=== PATIENT | female | born 1960 | race Caucasian/White ===

== ENCOUNTER 2023-06-02 11:25 | Inpatient (IN) ==
--- NOTE | 2023-06-02 11:58 | Emergency Department Note ---
Impression & Plan Acute cholecystitis, Chest pain, Acute pancreatitis ED Provider Note NAME: CHILO PAIGE AGE: 63 SEX: F : 1960 ARRIVES VIA: Walk-In INFORMANT: Patient, ED PROVIDER(S): Edd Wells DO CHIEF COMPLAINT: Chest pain HPI: The patient is a 63-year-old female who presented to the emergency department for an evaluation of chest pain. The patient describes epigastric pain that radiates into her upper chest. She states that she had a similar episode a few days ago but it resolved spontaneously. She returns emergency room today because of ongoing and worsening pain. The pain started again this morning. Is not worse with food or exertion. She has no pain in her back. Patient does report nausea but no vomiting at this time. ROS: See above HPI for pertinent positives & negatives. A total of 10 systems reviewed and were otherwise negative. PAST MEDICAL HISTORY: See Below PAST SURGICAL HISTORY: See Below FAMILY HISTORY: See Below SOCIAL HISTORY: See Below HOME MEDICATIONS: See Below ALLERGIES: See Below VITALS: See Below PHYSICAL EXAMINATION: GENERAL: The patient is awake and alert. She appears anxious and uncomfortable. EYES: The conjunctivae are clear. The pupils are round and reactive. EARS, NOSE, MOUTH AND THROAT: The nose is without any evidence of any deformity. NECK: The neck is nontender and supple. RESPIRATORY: Normal respiratory effort is noted there is no evidence of wheezing rhonchi or rales CARDIOVASCULAR: Regular rate and rhythm noted there no murmurs rubs or gallops normal S1 normal S2. GASTROINTESTINAL: Abdomen was mildly distended. There is epigastric tenderness to palpation which was moderate. There was no guarding or rigidity MUSCULOSKELETAL/EXTREMITIES: There is no evidence of gross deformity full range of motion is noted in the hips and shoulders. SKIN: There is no obvious evidence of any rash. There are no petechiae, pallor or cyanosis noted. NEUROLOGIC: Patient is awake alert and oriented x3. MEDICAL DECISION MAKING: The patient is a 63-year-old female who presented to the emergency department for an evaluation of chest pain. The patient describes anterior chest pain which began in the epigastric region. The patient's history and physical exam appear to be consistent with an intra-abdominal process. The patient was found to have an elevation in her LFTs as well as her lipase. For this reason CT of the abdomen and pelvis was obtained. This appears to be consistent with cholecystitis. The patient was treated with pain medication in the emergency department. She was also treated with IV antibiotics. I discussed the patient's laboratory and radiographic studies with her. I discussed her condition with the on-call [facility]. They have agreed to evaluate the patient in the emergency department for further management and disposition. Triage Nursing notes reviewed. Prior medical records reviewed Vital Signs: reviewed and remarkable for elevated blood pressure. Differential diagnosis: Cardiac ischemia, aortic dissection, pulmonary embolism, pneumothorax, pneumonia, pericarditis, myocarditis, esophageal rupture, GERD, cholecystitis, pancreatitis, musculoskeletal, as well as other pathologies. ER treatment provided: See below Diagnostics interpreted by me: ECG: EKG was obtained in the emergency department. My interpretation is normal sinus rhythm at 65 bpm. There is no ectopy. Nonspecific ST and T wave abnormalities were noted in the anterior leads. No previous tracing available. Cardiac Monitoring: An order was placed for continuous cardiac monitoring. The monitor shows a rate of 75 bpm with sinus rhythm Laboratory studies: As stated above and show below. Imaging studies: See below. Radiographic imaging was reviewed by myself Consultation(s): I discussed this case with Ronnell was on-call for the [facility] Past Med/Surg History Medical History Encounter for pre-operative examination Degenerative disc disease lumbar region Arthritis Stress incontinence GERD (gastroesophageal reflux disease) Prediabetes Hypertension Surgical History History of left cataract extraction Nausea and vomiting after administration of anesthetic agent History of section x 1 >incision infected and required debridement History of dilatation and curettage H/O ovarian cystectomy rt side History of esophagogastroduodenoscopy (EGD) History of tooth extraction Family History Other No family history of adverse response to anesthesia Social History Smoking Status: Never smoker Second Hand Exposure: Yes (as a child); Do You Dip or Chew Tobacco: No; Hx Alcohol Use: Yes Hx Substance Use: No Preferred Language: Latvian Communication Ability: Effective Chicken Dresser Required: No Beliefs That Will Affect Care: None Current Living Situation: Spouse and Family Current Living Situation Comment: and son Feels Safe at Home: Yes Assistive Devices: Glasses Allergies Allergies Allergy/AdvReac Type Severity Reaction Status Date / Time Penicillins Allergy Intermediate Hives Verified 04/19/23 08:51 Home Meds Home Medications Medication Instructions Recorded Confirmed albuterol sulfate 90 mcg/actuation 1 inh inhalation QID PRN sob 03/27/23 04/19/23 aerosol inhaler lisinopril 20 2 tab PO QAM 03/27/23 04/19/23 mg-hydrochlorothiazide 12.5 mg tablet omega-3 fatty acids 1,000 mg PO QAM 03/27/23 04/19/23 omeprazole 20 mg tablet,delayed 20 mg PO QPM 03/27/23 04/19/23 release Results & Data (ED) Vital Signs Vital Signs - 24 hr 06/02/23 11:29 06/02/23 15:00 06/02/23 15:04 Temperature 36.7 C Temperature Source Skin Pulse Rate 64 63 Pulse Rate from SpO2 Sensor 62 Respiratory Rate 18 18 Blood Pressure 164/77 H Blood Pressure [Left Arm] 132/75 Blood Pressure Mean 106 Blood Pressure Mean [Left Arm] 94 Pulse Oximetry 100 97 Oxygen Delivery Method Room Air Sepsis Recent Fever Within 48 Hours No Sepsis New/Unexplained Change in Mental Status No Sepsis Action Taken by Nursing No Action Required 06/02/23 15:12 06/02/23 15:30 06/02/23 15:31 Temperature Temperature Source Pulse Rate 65 72 75 Pulse Rate from SpO2 Sensor 71 78 Respiratory Rate 19 14 Blood Pressure Blood Pressure [Left Arm] Blood Pressure Mean Blood Pressure Mean [Left Arm] Pulse Oximetry 99 98 Oxygen Delivery Method Sepsis Recent Fever Within 48 Hours Sepsis New/Unexplained Change in Mental Status Sepsis Action Taken by Nursing 06/02/23 15:31 06/02/23 15:40 Temperature Temperature Source Pulse Rate Pulse Rate from SpO2 Sensor Respiratory Rate Blood Pressure 151/95 H Blood Pressure [Left Arm] Blood Pressure Mean 124 Blood Pressure Mean [Left Arm] Pulse Oximetry 98 Oxygen Delivery Method Room Air Sepsis Recent Fever Within 48 Hours Sepsis New/Unexplained Change in Mental Status Sepsis Action Taken by [facility] Medications Current Medication List: was personally reviewed by me Laboratory Data Attestation: I reviewed the patient's lab results. 06/02/23 12:16 06/02/23 14:44 Lab Results 06/02/23 06/02/23 Range/Units 12:16 14:44 WBC 8.66 (4.8-10.8) K/ul RBC 4.94 (4.20-5.40) M/uL Hgb 14.3 (12.0-16.0) g/dl Hct 42.0 (37.0-47.0) % MCV 85.0 (80.0-100.0) fL MCH 28.9 (25.0-34.0) pg MCHC 34.0 (32.0-36.0) g/dL RDW Std Deviation 39.6 (36.4-46.3) fL RDW Coeff of Lisandro 12.8 (11.5-14.5) % Plt Count 208 (130-400) K/uL MPV 11.2 (9.4-12.4) fL Immature Gran % (Auto) 0.2 % Neut % (Auto) 80.4 % Lymph % (Auto) 12.8 % Edmunds % (Auto) 5.1 % Eos % (Auto) 0.9 % Baso % (Auto) 0.6 % Neut # (Auto) 6.96 H (1.40-6.50) K/uL Lymph # (Auto) 1.11 L (1.20-3.40) K/uL Edmunds # (Auto) 0.44 (0.11-0.59) K/uL Eos # (Auto) 0.08 (0.00-0.50) K/uL Baso # (Auto) 0.05 (0.00-0.20) K/uL Immature Gran # (Auto) 0.02 (0.01-0.20) K/uL PT Cancelled 10.9 INR Cancelled 1.0 APTT Cancelled 26 PTT Ratio Cancelled 0.9 Sodium 142 (136-145) mmol/L Potassium TNP 3.9 Chloride 104 (98-107) mmol/L Carbon Dioxide 30 (21-32) mmol/L Anion Gap 8 (3-11) BUN 16 (6-23) mg/dl Creatinine 0.56 L (0.6-1.2) mg/dl Est Cr Clr Drug Dosing Not Reportable Est GFR ( Amer) 116.6 ml/min Est GFR (Non-Af Amer) 100.6 ml/min BUN/Creatinine Ratio 28.6 H (10-20) Glucose 145 H (70-99(Fasting)) mg/dl Calcium 9.8 (8.6-10.3) mg/dl Total Bilirubin 1.6 H (0.2-1.0) mg/dl AST TNP 166 H ALT 67 H (7-52) U/L Alkaline Phosphatase 101 (34-104) U/L Troponin I High Sens 2.5 (0-14) pg/ml Total Protein 7.3 (6.0-8.3) gm/dl Albumin 4.4 (3.4-5.0) gm/dl Globulin 2.9 (2.5-4.0) gm/dl Albumin/Globulin Ratio 1.5 (0.9-2) Lipase 692 H (11-82) U/L Administered Medications Cefoxitin Sodium (Mefoxin) 2,000 mg in 60 mls @ 100 mls/hr IV NOW STA Stop: 06/02/23 16:01 Last Admin: 06/02/23 15:34 Dose: 100 mls/hr Documented By: NH Discontinued Medications Al Hydrox/Mg Hydrox/Simethicone (Aluminum/Magnesium Susp 30 Ml Udc) 30 ml PO NOW STA Stop: 06/02/23 11:41 Last Admin: 06/02/23 12:17 Dose: 30 ml Documented By: CALEB Sodium Chloride (Nss) 500 mls @ 999 mls/hr IV .Q31M STA Stop: 06/02/23 12:10 Last Infusion: 06/02/23 14:28 Dose: Infused Documented By: Admin: 06/02/23 12:12 Dose: 999 mls/hr Documented By: CALEB Ioversol (Optiray 320 500ml) 90 ml IV ONCE ONE Stop: 06/02/23 14:30 Last Admin: 06/02/23 14:30 Dose: 90 ml Documented By: VERENA Morphine Sulfate (Morphine Sulfate 4 Mg/Ml 1 Ml Carp\Vial) 4 mg IV NOW STA Stop: 06/02/23 11:41 Last Admin: 06/02/23 12:14 Dose: 4 mg Documented By: CALEB Ondansetron HCl (Ondansetron Inj 2 Mg/Ml 2 Ml Vial) 4 mg IV NOW STA Stop: 06/02/23 11:41 Last Admin: 06/02/23 12:13 Dose: 4 mg Documented By: TAMEKAW Imaging Data Attestation: I personally reviewed and interpreted this imaging study as follows: My Impression: 1 view chest x-ray was obtained in the emergency department. My interpretation is no free air or definite infiltrate, final report below. KUB was obtained in the emergency department. My interpretation is no free air or signs of bowel obstruction, final report below Radiologist's Impression: Chest X-Ray 06/02/23 11:40 SINGLE VIEW CHEST CLINICAL HISTORY: Atypical chest pain FINDINGS: An AP, portable, upright chest radiograph is obtained. No prior studies are available for comparison at the time of dictation. The cardiomediastinal silhouette is unremarkable. There is mild elevation of the right hemidiaphragm and dependent atelectasis. The lungs and pleural spaces are otherwise clear. No pneumothorax is seen. The bony thorax is grossly intact. IMPRESSION: No active disease in the chest. ACT 112: Negative or not required by law. Electronically signed by: Jovany Melo M.D. 06/02/2023 12:53 PM KUB X-Ray 06/02/23 11:40 KUB CLINICAL HISTORY: Epigastric pain. COMPARISON STUDY: None. FINDINGS: Pelvic calcifications likely reflect phleboliths. The bowel gas pattern is normal. Amount of stool is within normal limits. Exam is mildly compromised given suboptimal penetration. No definite renal calculi. IMPRESSION: No evidence for a bowel obstruction. ACT 112: Negative or not required by law. Electronically signed by: Edison Bay M.D. 06/02/2023 1:02 PM Abdomen/Pelvis CT 06/02/23 13:[address] WITH IV CONTRAST CT DOSE: 1422.96 mGy.cm HISTORY: Acute upper abdominal pain upper abd pain TECHNIQUE: Multiaxial CT images of the abdomen and pelvis were performed following the IV administration of 90 cc of Optiray, A dose lowering technique was utilized adhering to the principles of ALARA. COMPARISON STUDY: Chest radiograph of same day FINDINGS: Trace pleural effusions. Lung bases are generally clear. No free air. Mild hepatomegaly, 14.9 cm. Unremarkable pancreas and adrenal glands. Circumferential gallbladder wall thickening with mild pericholecystic stranding. Dilation of the common bile duct measures up to 1.2 cm. No obstructing biliary stone or lesion identified. Normal caliber of the pancreatic duct. Hepatic steatosis. There are a few scattered cysts within the liver measuring up to 9 mm. Patent hepatic and portal veins. Parenchymal and renal sinus cysts of the kidneys. 3 mm nonobstructing calculus of the superior pole left kidney. No ureteral calculi or hydronephrosis. Decompressed bladder with mild wall thickening. Unremarkable uterus. Atherosclerosis of aorta. No lymphadenopathy. No bowel obstruction, ascites or mesenteric inflammation. Mild colonic diverticulosis. Normal appendix. Tiny fat filled umbilical hernia. Degenerative changes of the spine, pelvis and hips. IMPRESSION: 1. Distended gallbladder with wall thickening and pericholecystic stranding suggestive of acute cholecystitis. No gallstones are identified by CT. 2. Mild dilation of the common bile duct should be correlated with serum bilirubin to exclude an obstructive process. 3. Hepatic steatosis. 4. Splenomegaly. 5. Nonobstructing left renal calculus. 6. Additional findings as above. ACT 112: Negative or not required by law. The above report was generated using voice recognition software. It may contain grammatical, syntax or spelling errors. Electronically signed by: Tremaine Yeboah M.D. 06/02/2023 3:19 PM Discharge Plan Visit Data Chief Complaint: Chest Pain Stated Complaint: CHEST PAINS, HAND TINGLING, SWEATS ED Provider: Edd Wells Discharge Problem: Acute cholecystitis, Chest pain, Acute pancreatitis Patient Disposition: Being Evaluated by Hospitalist Forms Stand Alone Forms: [facility] Prescriptions Prescriptions: No Action lisinopril-hydrochlorothiazide 20-12.5 mg Tablet 2 tab PO QAM omega-3 fatty acids Capsule 1,000 mg PO QAM omeprazole 20 mg Tablet,Delayed Release (Dr/Ec) 20 mg PO QPM albuterol sulfate 90 mcg/actuation Hfa Aerosol Inhaler 1 inh INHALATION QID PRN (Reason: sob) Patient Comments: last used months ago Referrals Referrals: Tracee Bravo DO [Primary Care Provider] - Discharge Problem: Chest pain Qualifiers: Chest pain type: unspecified Qualified Code(s): R07.9 - Chest pain, unspecified Acute pancreatitis Qualifiers: Pancreatitis type: biliary Acute pancreatitis complication: unspecified Q ualified Code(s): K85.10 - Biliary acute pancreatitis without necrosis or infection
--- NOTE | 2023-06-02 12:05 | Electrocardiogram Report ---
Test Reason : Blood Pressure : / mmHG Vent. Rate : 065 BPM Atrial Rate : 065 BPM P-R Int : 204 ms QRS Dur : 094 ms QT Int : 406 ms P-R-T Axes : 062 002 036 degrees QTc Int : 422 ms Normal sinus rhythm Normal ECG No previous ECGs available Confirmed by Nitish Richmond ([id number]) on 06/02/2023 12:05:17 PM Referred By: Confirmed By:Nitish Richmond
[2023-06-02] MEDS: SODIUM CHLORIDE 0.9% 500 ML IV STA (12:12)
[2023-06-02] MEDS: ONDANSETRON INJ 2 MG/ML 2 ML VIAL IV STA (12:13)
[2023-06-02] MEDS: MoRPHine SULFATE 4 MG/ML 1 ML CARP\\VIAL IV STA (12:14)
[2023-06-02] MEDS: ALUMINUM/MAGNESIUM SUSP 30 ML UDC PO STA (12:17)
--- NOTE | 2023-06-02 12:54 | XRay Report ---
SINGLE VIEW CHEST CLINICAL HISTORY: Atypical chest pain FINDINGS: An AP, portable, upright chest radiograph is obtained. No prior studies are available for c omparison at the time of dictation. The cardiomediastinal silhouette is unremarkable. There is mild e levation of the right hemidiaphragm and dependent atelectasis. The lungs and pleural spaces are other arreola clear. No pneumothorax is seen. The bony thorax is grossly intact. IMPRESSION: No active disease in the chest. ACT 112: Negative or not required by law. Electronically signed by: Jovany Melo M.D. 06/02/2023 12:53 PM
--- NOTE | 2023-06-02 13:04 | XRay Report ---
KUB CLINICAL HISTORY: Epigastric pain. COMPARISON STUDY: None. FINDINGS: Pelvic calcifications likely reflect phleboliths. The bowel gas pattern is normal. Amount o f stool is within normal limits. Exam is mildly compromised given suboptimal penetration. No definite renal calculi. IMPRESSION: No evidence for a bowel obstruction. ACT 112: Negative or not required by law. Electronically signed by: Edison Bya M.D. 06/02/2023 1:02 PM
[2023-06-02 13:06] LABS: Basophils # (auto) 0.05 K/uL (0.00-0.20); Basophils % (auto) 0.6 %; Eosinophils # (auto) 0.08 K/uL (0.00-0.50); Eosinophils % (auto) 0.9 %; Hemoglobin 14.3 g/dl (12.0-16.0); Immature Granulocytes # (auto) 0.02 K/uL (0.01-0.20); Immature Granulocytes % (auto) 0.2 %; Lymphocytes # (auto) 1.11 K/uL (1.20-3.40); Lymphocytes % (auto) 12.8 %; Mean Corpuscular Hemoglobin 28.9 pg (25.0-34.0); Mean Platelet Volume 11.2 fL (9.4-12.4); Monocytes # (auto) 0.44 K/uL (0.11-0.59); Monocytes % (auto) 5.1 %; Neutrophils # (auto) 6.96 K/uL (1.40-6.50); Neutrophils % (auto) 80.4 %; Platelet Count 208 K/uL (130-400); RDW Coefficient of Variation 12.8 % (11.5-14.5); RDW Standard Deviation 39.6 fL (36.4-46.3); Red Blood Count 4.94 M/uL (4.20-5.40); White Blood Count 8.66 K/ul (4.8-10.8)
[2023-06-02 13:11] LABS: Alanine Aminotransferase 67 U/L (7-52); Albumin Globulin Ratio 1.5 (0.9-2); Albumin Level 4.4 gm/dl (3.4-5.0); Alkaline Phosphatase 101 U/L (34-104); Anion Gap 8 (3-11); BUN Creatinine Ratio 28.6 (10-20); Bilirubin,Total 1.6 mg/dl (0.2-1.0); Blood Urea Nitrogen 16 mg/dl (6-23); Calcium 9.8 mg/dl (8.6-10.3); Carbon Dioxide 30 mmol/L (21-32); Chloride 104 mmol/L (98-107); Est GFR (African American) 116.6 ml/min; Est GFR (Non-African American) 100.6 ml/min; Globulin 2.9 gm/dl (2.5-4.0); Glucose 145 mg/dl (70-99(Fasting)); Sodium 142 mmol/L (136-145); Total Protein 7.3 gm/dl (6.0-8.3); Troponin I High Sensitivity 2.5 pg/ml (0-14)
[2023-06-02 13:13] LABS: Lipase 692 U/L (11-82)
[2023-06-02] MEDS: OPTIRAY 320 500ml IV ONE (14:30)
--- NOTE | 2023-06-02 15:21 | CT Scan Report ---
ABDOMEN AND PELVIS CT WITH IV CONTRAST CT DOSE: 1422.96 mGy.cm HISTORY: Acute upper abdominal pain upper abd pain TECHNIQUE: Multiaxial CT images of the abdomen and pelvis were performed following the IV administrat ion of 90 cc of Optiray, A dose lowering technique was utilized adhering to the principles of ALARA. COMPARISON STUDY: Chest radiograph of same day FINDINGS: Trace pleural effusions. Lung bases are generally clear. No free air. Mild hepatomegaly, 14 .9 cm. Unremarkable pancreas and adrenal glands. Circumferential gallbladder wall thickening with mil d pericholecystic stranding. Dilation of the common bile duct measures up to 1.2 cm. No obstructing b iliary stone or lesion identified. Normal caliber of the pancreatic duct. Hepatic steatosis. There ar e a few scattered cysts within the liver measuring up to 9 mm. Patent hepatic and portal veins. Parenchymal and renal sinus cysts of the kidneys. 3 mm nonobstructing calculus of the superior pole l eft kidney. No ureteral calculi or hydronephrosis. Decompressed bladder with mild wall thickening. Un remarkable uterus. Atherosclerosis of aorta. No lymphadenopathy. No bowel obstruction, ascites or mes enteric inflammation. Mild colonic diverticulosis. Normal appendix. Tiny fat filled umbilical hernia. Degenerative changes of the spine, pelvis and hips. IMPRESSION: 1. Distended gallbladder with wall thickening and pericholecystic stranding suggestive of acute anyi cystitis. No gallstones are identified by CT. 2. Mild dilation of the common bile duct should be correlated with serum bilirubin to exclude an obst ructive process. 3. Hepatic steatosis. 4. Splenomegaly. 5. Nonobstructing left renal calculus. 6. Additional findings as above. ACT 112: Negative or not required by law. The above report was generated using voice recognition software. It may contain grammatical, syntax o r spelling errors. Electronically signed by: Tremaine Yeboah M.D. 06/02/2023 3:19 PM
[2023-06-02 15:25] LABS: Potassium 3.9 mmol/L (3.5-5.1)
[2023-06-02] MEDS: cefOXitin 2,000 MG/60 ML BAG IV STA (15:34)
[2023-06-02 15:37] LABS: Partial Thromboplastin Ratio 0.9; Partial Thromboplastin Time 26 Seconds (21-31); Prothrombin Time 10.9 Seconds (9.0-12.0)
[2023-06-02] MEDS ORDERED: ONDANSETRON INJ 2 MG/ML 2 ML VIAL IV PRN (16:08)
[2023-06-02] MEDS ORDERED: POLYETHYLENE (MIRALAX) 17 GM PACK PO PRN (16:08)
[2023-06-02] MEDS ORDERED: MAGNESIUM HYDROXIDE SUSP 30 ML UDC PO PRN (16:08)
[2023-06-02] MEDS ORDERED: ACETAMINOPHEN 325 MG TAB PO PRN (16:08)
--- NOTE | 2023-06-02 16:16 | History & Physical Report ---
Date of Service June 02, 2023 Assessment & Plan (1) Acute cholecystitis: (2) Acute pancreatitis: (3) Hypertension: (4) Prediabetes: (5) GERD (gastroesophageal reflux disease): Plan Ms. Burdick is a 63-year-old that presented to the ED today with complaints of epigastric chest pain with radiation into her upper chest wall that started this morning between 9 and 9:30 with tingling in both of her hands with diaphoresis. She states she was feeling nauseous but did not vomit. Reports that a similar episode occurred a few days ago resolving spontaneously. Other past medical history includes HTN, prediabetes and GERD. No leukocytosis, AST 166, ALT 67, lipase 692, total bili 1.6. Otherwise electrolytes unremarkable. Patient has not eaten today.Chest x-ray negative for acute cardiopulmonary process, KUB negative and did not indicate any kidney stones. Abdomen pelvis CT: Distended gallbladder with wall thickening and pericholecystic stranding suggestive of acute cholecystitis. No gallstones are identified by CT. 2. Mild dilation of the common bile duct should be correlated with serum bilirubin to exclude an obstructive process. 4. Splenomegaly. 5. Nonobstructing left renal calculus. Patient with acute cholecystitis and possible pancreatitis with mild dilation of the CBD with elevated total bilirubin. Will keep NPO and order MCRP and will start Cipro + Flagyl. Will reach out to gastroenterology and consult general surgery as well. Received 500 cc NSB in ED, will continue NSS @ 125ml/hour. Based on MRCP results will need to discuss whether or not transfer to another facility is warranted for warranted for further care and intervention. Acute cholecystitis: Possible acute pancreatitis: Acute No leukocytosis Lactate and blood cultures pending LFTs elevated AST 166, ALT 67; total bili 1.6 Lipase 692; repeat in AM Troponin negative Chest x-ray negative, KUB negative Abdomen/pelvis CT: Distended gallbladder with wall thickening and pericholecystic stranding suggestive of acute cholecystitis. No gallstones are identified by CT. Mild dilation of the common bile duct should be correlated with serum bilirubin to exclude an obstructive process. Splenomegaly. Nonobstructing left renal calculus. Cefoxitin given in ED; for now we will cover with Cipro plus Flagyl and adjust based on culture results or specialist recommendation 500 cc NSB given in ED; will continue NSS @ 125ml/hour GI consult placed General surgery consult placed HTN: Chronic Takes lisinopril-hydrochlorothiazide; continue GERD: Chronic Takes omeprazole; continue Prediabetes: Chronic Diet modifications and weight loss current plan Most recent A1c 04/13/23: 6.0 Disposition: PCP: Dr. Bravo CODE STATUS: Full code VTE prophylaxis: Teds and SCDs for now I spent a total of 87 minutes coordinating, documenting, and providing care for this patient excluding time spent in the performance of separately billed services. All of the aforementioned completed while collaborating with the assigned attending physician for a full treatment plan. Please see their addend um for further details. History of Present Illness Chief Complaint: upper abdominal pain Primary Care Provider: Tracee Bravo DO Ms. Burdick is a 63-year-old that presented to the ED today with complaints of midsternal chest pain without radiation started this morning between 9 and 9:30 with tingling in both of her hands with diaphoresis. She states she was feeling nauseous but did not vomit. She has described her pain as more epigastric with radiation into her upper chest. Reports that a similar episode occurred a few days ago resolving spontaneously. Other past medical history includes HTN, prediabetes and GERD. No leukocytosis, AST 166, ALT 67, lipase 692, total bili 1.6. Otherwise electrolytes unremarkable. Patient has not eaten today. Chest x-ray negative for acute cardiopulmonary process, KUB negative and did not indicate any kidney stones. Abdomen pelvis CT: Distended gallbladder with wall thickening and pericholecystic stranding suggestive of acute cholecystitis. No gallstones are identified by CT. 2. Mild dilation of the common bile duct should be correlated with serum bilirubin to exclude an obstructive process. 4. Splenomegaly. 5. Nonobstructing left renal calculus. Denies tobacco, alcohol or recreational drug use reported. Her son has autism and requires caregiver support. Patient denies history of AMI or stroke. Patient denies headache, dizziness, shortness of breath, chest pain, pal pitations, dysuria, bowel changes, recent falls or trauma. Patient with acute cholecystitis and possible pancreatitis with mild dilation of the CBD with elevated total bilirubin. Will keep NPO and order MCRP and will start Cipro + Flagyl. Will reach out to gastroenterology and consult general surgery as well. Received 500 cc NSB in ED, will continue NSS @ 125ml/hour. Based on MRCP results will need to discuss whether or not transfer to another facility is warranted for warranted for further care and intervention. Patient will be admitted for further evaluation and management. Please see A/P for further details. Allergies Allergy/AdvReac Type Severity Reaction Status Date / Time Penicillins Allergy Intermediate Hives Verified 06/02/23 16:32 Home Medications Medication Instructions Recorded Confirmed Type albuterol sulfate 90 mcg/actuation 1 inh inhalation QID PRN sob 03/27/23 06/02/23 History aerosol inhaler lisinopril 20 2 tab PO QAM 03/27/23 06/02/23 History mg-hydrochlorothiazide 12.5 mg tablet omega-3 fatty acids 1,000 mg PO QAM 03/27/23 06/02/23 History omeprazole 20 mg tablet,delayed 20 mg PO QPM 03/27/23 06/02/23 History release Past Med/Surg History Medical History (Updated 06/02/23 @ 16:52 by OBDULIO Wood) Encounter for pre-operative examination Degenerative disc disease lumbar region Arthritis Stress incontinence GERD (gastroesophageal reflux disease) Prediabetes Hypertension Surgical History History of left cataract extraction Nausea and vomiting after administration of anesthetic agent History of section x 1 >incision infected and required debridement History of dilatation and curettage H/O ovarian cystectomy rt side History of esophagogastroduodenoscopy (EGD) History of tooth extraction Family History Other No family history of adverse response to anesthesia Social History Smoking Status: Never smoker Second Hand Exposure: Yes (as a child); Do You Dip or Chew Tobacco: No; Hx Alcohol Use: Yes Hx Substance Use: No Preferred Language: Georgian Communication Ability: Effective Intelligence Director Required: No Beliefs That Will Affect Care: None Current Living Situation: Spouse and Family Current Living Situation Comment: and son Feels Safe at Home: Yes Assistive Devices: Glasses Review of Systems Review of Systems: Neuro: (-) Falls, trauma, slurred speech HEENT: (-) BLUE, dizziness, dysphagia, visual or auditory changes CV: (-) CP, palpitations, swelling Resp: (-) SOB GI: (-) appetite changes, (+) abdominal pain (+) N (-) V/D, bowel changes : (-) urinary changes Skin: (-) rashes Psych: (-) anxiety, depression Physical Exam Physical Exam: Neuro: AAOx4, PERRLA, no aphagia, memory changes, CNII-XII grossly intact HEENT: head normocephalic, moist mucus membranes CV: S1/S2, (-) M/G/R, (-) edema, cap refill < 3 seconds Resp: Lungs CTA in all sutton. On RA GI: Abdomen distended and firm epigastric region, generalized tenderness, hypoactive bowel sounds,(-) CVA tenderness Musculoskeletal: 5/5 B/L UE strength, 5/5 B/L LE strength. No gait disturbance Skin: (-) rashes , (-) erythema. Psych: euthymic mood Results & Data Results & Data Vital Signs (Past 12 Hours) Vital Signs Temp Pulse Resp BP BP Pulse Ox O2 Del Method 06/02/23 15:40 98 Room Air 06/02/23 15:31 151/95 H 06/02/23 15:31 75 14 98 06/02/23 15:30 72 19 99 06/02/23 15:12 65 06/02/23 15:04 63 18 97 06/02/23 15:00 132/75 06/02/23 11:29 36.7 C 64 18 164/77 H 100 Room Air Laboratory Results Short CBC 06/02/23 Range/Units 12:16 WBC 8.66 (4.8-10.8) K/ul Hgb 14.3 (12.0-16.0) g/dl Hct 42.0 (37.0-47.0) % Plt Count 208 (130-400) K/uL BMP 06/02/23 06/02/23 12:16 14:44 Sodium 142 Potassium TNP 3.9 Chloride 104 Carbon Dioxide 30 BUN 16 Creatinine 0.56 L Glucose 145 H Calcium 9.8 Liver Function 06/02/23 06/02/23 Range/Units 12:16 14:44 Total Bilirubin 1.6 H (0.2-1.0) mg/dl AST TNP 166 H ALT 67 H (7-52) U/L Alkaline Phosphatase 101 (34-104) U/L Albumin 4.4 (3.4-5.0) gm/dl Diagnostic Findings Chest X-Ray 06/02/23 11:40 SINGLE VIEW CHEST CLINICAL HISTORY: Atypical chest pain FINDINGS: An AP, portable, upright chest radiograph is obtained. No prior studies are available for comparison at the time of dictation. The cardiomediastinal silhouette is unremarkable. There is mild elevation of the right hemidiaphragm and dependent atelectasis. The lungs and pleural spaces are otherwise clear. No pneumothorax is seen. The bony thorax is grossly intact. IMPRESSION: No active disease in the chest. ACT 112: Negative or not required by law. Electronically signed by: Jovany Melo M.D. 06/02/2023 12:53 PM KUB X-Ray 06/02/23 11:40 KUB CLINICAL HISTORY: Epigastric pain. COMPARISON STUDY: None. FINDINGS: Pelvic calcifications likely reflect phleboliths. The bowel gas pattern is normal. Amount of stool is within normal limits. Exam is mildly compromised given suboptimal penetration. No definite renal calculi. IMPRESSION: No evidence for a bowel obstruction. ACT 112: Negative or not required by law. Electronically signed by: [place] M.D. 06/02/2023 1:02 PM Abdomen/Pelvis CT 06/02/23 13:[address] WITH IV CONTRAST CT DOSE: 1422.96 mGy.cm HISTORY: Acute upper abdominal pain upper abd pain TECHNIQUE: Multiaxial CT images of the abdomen and pelvis were performed following the IV administration of 90 cc of Optiray, A dose lowering technique was utilized adhering to the principles of ALARA. COMPARISON STUDY: Chest radiograph of same day FINDINGS: Trace pleural effusions. Lung bases are generally clear. No free air. Mild hepatomegaly, 14.9 cm. Unremarkable pancreas and adrenal glands. Circumferential gallbladder wall thickening with mild pericholecystic stranding. Dilation of the common bile duct measures up to 1.2 cm. No obstructing biliary stone or lesion identified. Normal caliber of the pancreatic duct. Hepatic steatosis. There are a few scattered cysts within the liver measuring up to 9 mm. Patent hepatic and portal veins. Parenchymal and renal sinus cysts of the kidneys. 3 mm nonobstructing calculus of the superior pole left kidney. No ureteral calculi or hydronephrosis. Decompressed bladder with mild wall thickening. Unremarkable uterus. Atherosclerosis of aorta. No lymphadenopathy. No bowel obstruction, ascites or mesenteric inflammation. Mild colonic diverticulosis. Normal appendix. Tiny fat filled umbilical hernia. Degenerative changes of the spine, pelvis and hips. IMPRESSION: 1. Distended gallbladder with wall thickening and pericholecystic stranding suggestive of acute cholecystitis. No gallstones are identified by CT. 2. Mild dilation of the common bile duct should be correlated with serum bilirubin to exclude an obstructive process. 3. Hepatic steatosis. 4. Splenomegaly. 5. Nonobstructing left renal calculus. 6. Additional findings as above. ACT 112: Negative or not required by law. The above report was generated using voice recognition software. It may contain grammatical, syntax or spelling errors. Electronically signed by: Tremaine Yeboah M.D. 06/02/2023 3:19 PM Code Status & VTE Plan Code Status Full code in the event of cardiac or respiratory arrest VTE Prophylaxis Plan VTE Prophylaxis will be ordered: Yes Supervising Physician Co-Signing Physician Notes I have seen and examined the patient and have discussed the case with the provider above. I have reviewed the advanced practitioner's documentation, and I agree with, and take responsibility for that plan of care. 63-year-old female presenting with substernal/epigastric chest pain beginning approximately an hour and a half after she awoke this morning. She tried to take in some toast and juice but this made her abdominal pain worse. She also feels that a couple days ago she had some food and felt the same pain. Highly sensitive troponin is negative and EKG is negative. ACS appears less likely. Elevated LFTs, total bilirubin clinical picture is consistent with possible acute cholecystitis/acute pancreatitis. There is no evidence of gallstones. Awaiting MRCP. Patient is in no acute distress and reports resolution of her pain after morphine. is at bedside and assist with history. She is not septic. Agree with plan for broad-spectrum antibiotics. Clinically she is obese with stable vital signs. She is oxygenating well on room air and mentating clearly. CV exam reveals S1-S2 heard with no murmurs gallops or rubs. There is no peripheral edema. Regular rate and rhythm was auscultated. Lungs are clear to auscultation bilaterally. Abdomen is soft with slight tenderness in the epigastric region with no guarding. There is no distention present. Skin is warm and dry. Acute cholecystitis-no evidence of stones, MRCP, broad-spectrum antibiotics. GI and GEN surge consult. Bowel rest. Acute pancreatitis-continue IV fluids and supportive care, bowel rest. I spent a total [id number] coordinating, documenting, and providing care for this patient excluding time spent in the performance of separately billed services Vivian Fleming DO [facility] Hospitalist (2) Acute pancreatitis Acute pancreatitis complication: unspecified Pancreatitis type: biliary Qualified Code(s): K85.10 - Biliary acute pancreatitis without necrosis or infection
--- OUTSIDE RECORDS SUMMARY | 2023-06-02 16:18 | External Medical Summary | Summary of Care ---
Author Name Unknown Organization [facility] Address [address] [place] [address] Phone [phone] Care Team Providers Care Property Claims Adjuster Name Role Phone Maricarmen Shipman DO Primary Care Provider Reason for Visit * Reason Comments Medication Refill Encounter Details Date Type Department Care Team (Late st Contact Info) Description 04/30/2023 Refill [facility] [address] [place] [address] Maricarmen Shipman DO [address] [place] [address] Essential hypertension with goal blood pressure less than 140/90 Allergies Active Allergy Reactions Criticality Noted Date Comments Penicillins Rash 03/30/2000 documented as of this encounter (statuses as of 2023) Medications Medication Sig Dispensed Refills Start Date End Date Status hydrocortisone (ANUSOL-HC) 2.5 % rectal creamIndications: Anal fissure Apply to rectum every morning and evening as needed for rectal pain or itching 3 Tube 4 11/17/2016 Active omega-3 1000 MG CAPS 1 Capsule in the morning. 0 Active Multiple Vitamins-Minerals (ONE-A-DAY WOMENS VITACRAVES) CHEW Take by mouth. 0 Acti ve Multiple Vitamins-Minerals (HAIR SKIN AND NAILS FORMULA) TABS Take by mouth. 0 Active Albuterol Sulfate (ALBUTEROL HFA) 108 (90 BASE) MCG/ACT inhalerIndication s:Bronchitis Inhale 2 Puffs by mouth every 4 hours as needed for Wheezing. 6.7 g 6 11/18/2019 Active Fluocinonide-E 0.05 % CREAIndications:H and dermatitis Apply topically to affected area 2 times a day. Apply to hands twice daily for 2 weeks 60 g 1 11/18/2019 Active Additional Information Patient not taking.Reported on 04/13/2023 Ciprofloxacin-Dex amethasone 0.3-0.1 % Otic Suspension (CIPRO-DEX)Indica tions:Acute otitis externa of left ear, unspecified type Administer 3 Drops into the left ear 2 times a day. 7.5 mL 5 01/16/2020 Active Additional Information Patient not taking.Reported on 11/14/2022 Fiber Adult Gummies 2 GM Oral Tablet Chewable Take by mouth. 0 Activ e Magnesium 100 MG Oral Capsule Take 1 Capsule by mouth in the morning and 1 Capsule before bedtime. 0 Active OneTouch UltraSoft LancetsIndication s:Prediabetes Use up to 1 time per day to check Glucose. E11.9 100 Each 10 07/03/2022 Active OneTouch Delica Lancets 30G Use up to 1 time per day to check Glucose. E11.9 100 Each 10 07/04/2022 Active Hydrocortisone 1 % External CreamIndications: Contact dermatitis, unspecified contact dermatitis type, unspecified trigger Apply topically to affected area 3 times a day as needed for Other (rash). For rash. 15 g 1 08/02/2022 Active Benzonatate 100 MG Oral CapsuleIndication s:Viral URI with cough Take 2 Capsules by mouth 3 times a day as needed for Cough. 30 Capsule 1 08/16/2022 Active Additional Information Patient not taking.Reported on 09/09/2022 FreeStyle Lex 2 [place] DeviceIndications :Prediabetes Use as directed. 1 Each 0 10/14/2022 Active FreeStyle Lex 2 SensorIndications :Prediabetes Use as directed. 1 Each 3 10/14/2022 Active Omeprazole 20 MG Oral Capsule Delayed Release (PriLOSEC)Indicat ions:Gastroesopha geal reflux disease without esophagitis,Esoph ageal dysphagia TAKE 1 CAPSULE BY MOUTH EVERY AFTERNOON 30 MINUTES BEFORE A MEAL 180 Capsule 1 10/12/2022 4 Active OneTouch Delica Plus [id number] USE TO TEST BLOOD SUGAR UP TO 1 TIME PER DAY 100 Each 10 07/04/2022 4 Active Glucose Blood In Vitro StripIndications: Prediabetes USE TO TEST BLOOD SUGAR UP TO 1 TIMES A DAY 100 Strip 11 07/03/2022 4 Active Lisinopril-hydroC HLOROthiazide 20-12.5 MG Oral TabletIndications :Essential hypertension with goal blood pressure less than 140/90 TAKE TWO TABLETS BY MOUTH EVERY DAY IN THE MORNING 180 Tablet 1 2023 5 Active Lisinopril-hydroC HLOROthiazide 20-12.5 MG Oral TabletIndications :Essential hypertension with goal blood pressure less than 140/90 TAKE TWO TABLETS BY MOUTH EVERY DAY IN THE MORNING 180 Tablet 1 08/16/2022 4 Discontinue d(Refill) documented as of this encounter (statuses as of 2023) Active Problems Problem Noted Date Diagnosed Date Prediabetes 06/06/2022 Overview: Per Prediabetes protocol Body mass index (BMI) of 40.0 to 44.9 in adult 0 09/01/2020 Overview: Per Obesity protocol Gastroesophageal reflux disease with esophagitis 05/20/2019 Morbid (severe) obesity due to excess calories 0 11/15/2018 Intermittent asthma with reliever use up to twic e per week 10/15/2009 Overview: Per Asthma Taxonomy ADVANCE DIRECTIVE INFORMATION 02/22/2007 Overview: Yes-advised to bring copy in to be scanned into EMR. HTN, goal below 140/90 09/17/2003 Dysmenorrhea 01/04/2002 DDD (degenerative disc disease), lumbar 01/05/20 02 documented as of this encounter (statuses as of 2023) Resolved Problems Problem Noted Date Diagnosed Date Resolved Date Infective otitis externa 10/16/2010 Obesity, Class II, BMI 35-39 .9, isolated (see actual BMI) 10/05/2009 07/25/2022 Overview: Per Obesity Protocol, #19 BACKACHE NOS 09/17/2003 08/23/2007 EXTRINSIC ASTHMA, UNSPEC 05/09/2003 HYPERTENSION NOS 02/22/2007 documented as of this encounter (statuses as of 2023) Immunizations Name Administration Dates Next Due Pneumococcal Polysaccharide PPV23 (Pneumovax) 08/26/2008(Deferred: Patient Refused) TDAP (age 11 and older)(Adacel) 02/25/2008 documented as of this encounter Social History Tobacco Use Types Packs/Day Years Used Date Smoking Tobacco: Never Passive Smoke Exposure: Never Smokeless Tobacco: Never Alcohol Use Standard Drinks/Week Comments Yes 0 (1 standard drink = 0.6 oz pur e alcohol) occasional PHQ-2 Answer Date Recorded PHQ Adult Total Score 0 08/16/2022 Hunger Vital Sign Answer Date Recorded Within the past 12 months, y ou worried that your food would run out before you got the money to buy more. Never true 10/15/19 23 Within the past 12 months, t he food you bought just didn't last and you didn't have money to get more. Never true 10/14/2022 Sex and Gender Information Value Date Recorded Sex Assigned at Female 11/15/2018 1:04 PM EDT Gender Identity Female 11/15/2018 1:04 PM EDT Sexual Orientation Straight 11/15/2018 1: 04 PM EDT Job Start Date Occupation Industry Not on file Not on file Not on file documented as of this encounter Miscellaneous Notes * Telephone Encounter - Maricarmen Anne RPh - 2023 2:41 PM ESTSigned Prescriptions: Disp Refills Lisinopril-hydroCHLOROthiazide 20-12.5 MG *180 Ta*1 Sig: TAKE TWO TABLETS BY MOUTH EVERY DAY IN THE MORNINGAuthorizing Provider: MARICARMEN SHIPMAN User: MARICARMEN ANNE documented in this encounter Plan of Treatment Upcoming Encounters Date Type Department Care Team (Late st Contact Info) Description 08/31/2023 11:50 AM EDT Office Visit [facility] [address] [place] [id number] Maricarmen Shipman DO [address] [facility] [place] [id number] Health Maintenance Due Date Last Done Comments COVID-19 Vaccine (#1) 1962 Pneumococcal Vaccine: Pediatrics (0 to 5 Years) and At-Risk Patients (6 to 64 Years) (1 - PCV) 1968 HIV Screening 1977 Hepatitis C Screening 1980 HPV/Co-Test 1992 Colonoscopy 2007 Sigmoidoscopy 2007 Zoster Vaccines (1 of 2) 2012 DTaP,Tdap,and Td Vaccines (2 - Td or Tdap) 02/24/2018 02/25/2008 Fecal Occult Blood Test 05/10/2018 05/10/2017 Influenza Vaccine (FLU shot) (#1) 2022 Depression Screening 08/17/2023 08/16/2022 Mammogram 10/27/2023 10/26/2022, 09/24, 10/19/2020, Additional history exists GFR 04/13/2024 04/13/2023, 09/23, 06/23/2022, Additional history exists HbA1c 04/13/2024 04/13/2023, 09/23, 05/27/2022, Additional history exists Cervical Cancer Screening 06/17/2024 Pap Smear 06/17/2024 06/17/2021, 04/0 06/2018, 12/14/2017, Additional history exists Albumin/Creatinine Ratio 01/07/2025 01/07/2022 Cologuard 06/29/2025 06/29/2022, 03/0 04/2022, 06/22/2022, Additional history exists Colorectal Cancer Screening 06/29/2025 Lipid Panel 01/07/2027 01/07/2022, 08/2019, 09/07/2017, Additional history exists Hepatitis B Completed 09/10/2003, 04/24, 03/12/2003 GARDASIL-HPV IMMUNIZATION SERIES Aged Out No longer eligible based on patient's age to complete this topic MENINGOCOCCAL (MENACTRA/MENVEO) Aged Out No longer eligible based on patient's age to complete this topic documented as of this encounter Medical Devices Not on filedocumented as of this encounter Visit Diagnoses Diagnosis Essential hypertension with goal blood pressure less than 140/90 documented in this encounter Care Teams Property Claims Adjuster Relationship Specialty Start Date End Date Maricarmen Shipman DO [address] [place] [address] PCP - General Family Medicine 09/21/11 documented as of this encounter
[2023-06-02] MEDS ORDERED: MoRPHine SULFATE 2 MG/ML CARP IV PRN (17:11)
[2023-06-02 17:15] LABS: Magnesium 1.9 mg/dl (1.7-2.4)
[2023-06-02] MEDS: metroNIDAZOLE 500 MG/100 ML BAG IV SCH (17:15)
[2023-06-02] MEDS: SODIUM CHLORIDE 0.9% 1,000 ML IV SCH (17:55)
[2023-06-02] MEDS: Patient's HEIGHT &/or WEIGHT Needed SCH (19:14)
[2023-06-02] MEDS: CIPROFLOXACIN / D5W 400 MG/200 ML BAG IV SCH (19:14)
--- NOTE | 2023-06-02 21:06 | Magnetic Resonance Report ---
MRCP CLINICAL HISTORY: Acute cholecystitis. COMPARISON STUDY: Abdominal CT dated 06/02/2023. TECHNIQUE: Abdominal MRCP is performed utilizing various T2-weighted sequences in the axial and coron al planes. Diffusion weighted imaging was utilized. IV contrast was not administered for this examina tion. 3-D reformats are created and assessed. FINDINGS: There are gallstones in the region of the gallbladder neck. The gallbladder is distended an d thick walled, with evidence of acute cholecystitis. There is trace pericholecystic fluid. There is no intrahepatic biliary duct dilatation. The common bile duct is dilated, measuring up to 10 mm. Ther e is likely layering stones/sludge within the common bile duct, best seen on axial reformatted image #159 of 320 and sagittal reformatted image #133 of 320. The pancreatic duct is normal in caliber. A subcentimeter cyst is noted in the liver. The unenhanced liver is otherwise normal as imaged. The s pleen is mildly enlarged measuring 14.3 cm in length. The pancreas is normal as imaged. There are num erous renal sinus cysts bilaterally. The kidneys are normal in size and without hydronephrosis. The a bdominal aorta is normal in course and caliber. No abdominal ascites is identified. There is no pleur al effusion. The bony structures appear intact. IMPRESSION: 1. Cholelithiasis with evidence of acute cholecystitis. 2. The common bile duct is dilated, and likely contains layering sludge/stones. 3. Mild splenomegaly. 4. Additional findings as above. Dictated: 06/02/2023 7:09 PM Transcribed: 06/02/2023 7:26 PM Tristen [id number] [email or web address] Electronically signed by: Jovany Melo M.D. 06/02/2023 9:05 PM
[2023-06-03 06:46] LABS: Hematocrit (blood only) 38.1 % (37.0-47.0); Hemoglobin 12.4 g/dl (12.0-16.0); Mean Corpuscular Hemoglobin 28.7 pg (25.0-34.0); Mean Corpuscular Hgb Conc 32.5 g/dL (32.0-36.0); Mean Corpuscular Volume 88.2 fL (80.0-100.0); Mean Platelet Volume 10.5 fL (9.4-12.4); Platelet Count 180 K/uL (130-400); RDW Standard Deviation 42.1 fL (36.4-46.3); Red Blood Count 4.32 M/uL (4.20-5.40); White Blood Count 5.34 K/ul (4.8-10.8)
--- NOTE | 2023-06-03 07:44 | Hospitalist Progress Note ---
Date of Service June 03, 2023 Assessment & Plan (1) Acute cholecystitis: (2) Acute pancreatitis: (3) Hypertension: (4) Prediabetes: (5) GERD (gastroesophageal reflux disease): (6) Choledocholithiasis: (7) Chest pain: Plan Ms. Burdick is a 63-year-old female with PMHx significant for HTN, prediabetes and GERD presenting with chest pain. Work-up was concerning for acute cholecystitis and choledocholithiasis, ACS ruled out. Acute cholecystitis: Acute choledocholithiasis: Acute pancreatitis: Atypical Chest Pain WBC not elevated on admission, afebrile, vitals otherwise stable LFTs elevated: AST 166, ALT 67; total bili 1.6 Lipase 692 Troponin x1 negative, EKG NSR Chest x-ray negative, KUB negative Abdomen/pelvis CT: Distended gallbladder with wall thickening and pericholecystic stranding suggestive of acute cholecystitis. No gallstones are identified by CT. Mild dilation of the common bile duct should be correlated with serum bilirubin to exclude an obstructive process. Splenomegaly. Nonobstructing left renal calculus. MRCP noting: . Cholelithiasis with evidence of acute cholecystitis Dilated common bile duct that "likely contains layering sludge/stones." Mild splenomegaly. Cefoxitin given in ED; continue with Cipro and Flagyl Continue NSS @ 125ml/hour GI consult placed, appreciate recs -ERCP and cholecystectomy needed -ERCP can be done on Monday 06/05 -transfer if pt develops signs of cholangitis before ERCP can be done General surgery consult placed, appreciate recs -Notes liver enzymes generally downtrending on 06/03 -Advised that if downtrend continues in the AM, will consider cholecystectomy tomorrow 06/04 -Otherwise will be done after ERCP Lipase downtrended and wnl after fluids, likely was elevated in setting of choledocholithiasis ACS ruled out, chest pain likely in setting of diagnoses above Trend WBC and liver enzymes with AM labs HTN: Chronic Takes lisinopril-hydrochlorothiazide; continue GERD: Chronic Takes omeprazole; continue Prediabetes: Chronic Diet modifications and weight loss current plan Most recent A1c 04/13/23: 6.0 Diet: Clears, NPO after midnight CODE STATUS: Full code VTE prophylaxis: Teds and SCDs perioperative/procedure DISPO: Home postop, consider PT/OT eval Admission and Anticipated Discharge Date Admission Date: June 02, 2023 Subjective Pt was seen in the AM. Family at bedside. Asking about going home but notes she had not yet been seen by any specialists yet. Denied chest or abdominal pain, N/V. Review of Systems Review of Systems: All systems reviewed & are unremarkable except as noted in Subjective Physical Exam Physical Exam: General: Alert, oriented. No acute distress Skin: No noted rashes or bruises Psych: Appropriate mood and affect Neuro: No gross deficits HEENT: NC/AT Chest: Nontender to palpation. CV: RRR Resp: Breath sounds clear bilaterally, no increased effort of breathing. Abdomen: Soft, nontender, nondistended. No guarding. Results & Data Results & Data Vital Signs (Past 12 Hours) Vital Signs Temp Pulse Resp BP Pulse Ox O2 Del Method 06/02/23 23:35 Room Air 06/02/23 23:35 36.9 C 64 18 160/90 H 97 Room Air (2) Acute pancreatitis Acute pancreatitis complication: unspecified Pancreatitis type: biliary Qualified Code(s): K85.10 - Biliary acute pancreatitis without necrosis or infection (7) Chest pain Chest pain type: unspecified Qualified Code(s): R07.9 - Chest pain, unspecified
[2023-06-03 08:00] LABS: Albumin Globulin Ratio 1.8 (0.9-2); Albumin Level 3.7 gm/dl (3.4-5.0); BUN Creatinine Ratio 18.2 (10-20); Bilirubin,Total 0.7 mg/dl (0.2-1.0); Calcium 8.6 mg/dl (8.6-10.3); Creatinine Clr Calc Pharmacy 131.5 ml/min; Est GFR (African American) 117.3 ml/min; Est GFR (Non-African American) 101.2 ml/min; Globulin 2.1 gm/dl (2.5-4.0); Potassium 3.8 mmol/L (3.5-5.1); Total Protein 5.8 gm/dl (6.0-8.3)
[2023-06-03] MEDS: LISINOPRIL/HCTZ 20/12.5MG 1 TAB TAB PO SCH (08:56)
--- NOTE | 2023-06-03 09:32 | Gastrointestinal Consultation ---
Date of Consultation June 03, 2023 Assessment & Plan (1) Acute cholecystitis: Pleasant lady with chest pain likely related to biliary disease with suggestion of sludge in bile duct and gallstones in gallbladder. Needs cholecystectomy and needs ERCP. ERCP cannot be done here until Monday. If she deteriorates or shows signs of cholangitis she will need to be transferred to facility where ERCP can be done over weekend. Will leave timing for surgery in the surgeons hands. History of Present Illness Reason for Consultation: gallstones Attending Physician: Claire Haynes MD History of Present Illness 63 year old female who has had two episodes of chest pain in the past week. Presented to ED and found to have evidence of cholecystitis with elevated LFT's and mild pancreatitis. MRCP showed "sludge" in the bile duct. She denies fever or chills. Currently she feels well. She has had two EGD's in the past by Dr. Bustamante but chose cologuard over colonoscopy for screening Allergies Allergy/AdvReac Type Severity Reaction Status Date / Time Penicillins Allergy Intermediate Hives Verified 06/02/23 16:32 Home Medications Medication Instructions Recorded Confirmed Type albuterol sulfate 90 mcg/actuation 1 inh inhalation QID PRN sob 03/27/23 06/02/23 History aerosol inhaler lisinopril 20 2 tab PO QAM 03/27/23 06/02/23 History mg-hydrochlorothiazide 12.5 mg tablet omega-3 fatty acids 1,000 mg PO QAM 03/27/23 06/02/23 History omeprazole 20 mg tablet,delayed 20 mg PO QPM 03/27/23 06/02/23 History release Patient History Medical History Encounter for pre-operative examination Degenerative disc disease lumbar region Arthritis Stress incontinence GERD (gastroesophageal reflux disease) Prediabetes Hypertension Surgical History History of left cataract extraction Nausea and vomiting after administration of anesthetic agent History of section x 1 >incision infected and required debridement History of dilatation and curettage H/O ovarian cystectomy rt side History of esophagogastroduodenoscopy (EGD) History of tooth extraction Family History Other No family history of adverse response to anesthesia Social History Smoking Status: Never smoker Second Hand Exposure: Yes (as a child); Do You Dip or Chew Tobacco: No; Hx Alcohol Use: No Hx Substance Use: No Preferred Language: [place]orese Communication Ability: Effective 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 Beliefs That Will Affect Care: None Current Living Situation: Spouse Current Living Situation Comment: and son Other Information That Helps Us Care for You: No Feels Safe at Home: Yes Safety Concerns: Feels Safe At This Time Assistive Devices: Glasses Review of Systems Review of Systems: All systems reviewed & are unremarkable except as noted in HPI & below Physical Exam Constitutional: WD/WN, vitals as above no acute distress Eyes: PERRL, conjunctivae normal, anicteric sclerae ENMT: external ear and nose normal, oropharynx normal Neck: trachea midline, no thyromegaly Respiratory: normal respiratory effort, lungs clear to auscultation Cardiovascular: RRR, no murmur, no edema Gastrointestinal (Abdomen): normal bowel sounds, soft, nontender, no hepatosplenomegaly Musculoskeletal: Extremities: no cyanosis and no clubbing Skin: no rashes, warm and dry Neurologic: PERRL, EOMI, accommodation nl, no face palsy, no dysarthria Psychiatric: Orientation: alert and oriented x 3 Results & Data Vital Signs (Past 12 Hours) Vital Signs Temp Pulse Resp BP Pulse Ox O2 Del Method 06/03/23 07:59 36.3 C L 66 18 159/80 H 97 Room Air 06/02/23 23:35 Room Air 06/02/23 23:35 36.9 C 64 18 160/90 H 97 Room Air Laboratory Results 06/03/23 06/02/23 06/02/23 Range/Units 05:27 14:44 12:16 WBC 5.34 8.66 (4.8-10.8) K/ul RBC 4.32 4.94 (4.20-5.40) M/uL Hgb 12.4 14.3 (12.0-16.0) g/dl Hct 38.1 42.0 (37.0-47.0) % MCV 88.2 85.0 (80.0-100.0) fL MCH 28.7 28.9 (25.0-34.0) pg MCHC 32.5 34.0 (32.0-36.0) g/dL RDW Std Deviation 42.1 39.6 (36.4-46.3) fL RDW Coeff of Lisandro 13.0 12.8 (11.5-14.5) % Plt Count 180 208 (130-400) K/uL MPV 10.5 11.2 (9.4-12.4) fL Immature Gran % (Auto) 0.2 % Neut % (Auto) 80.4 % Lymph % (Auto) 12.8 % Warren % (Auto) 5.1 % Eos % (Auto) 0.9 % Baso % (Auto) 0.6 % Neut # (Auto) 6.96 H (1.40-6.50) K/uL Lymph # (Auto) 1.11 L (1.20-3.40) K/uL Warren # (Auto) 0.44 (0.11-0.59) K/uL Eos # (Auto) 0.08 (0.00-0.50) K/uL Baso # (Auto) 0.05 (0.00-0.20) K/uL Immature Gran # (Auto) 0.02 (0.01-0.20) K/uL PT 10.9 Cancelled INR 1.0 Cancelled APTT 26 Cancelled PTT Ratio 0.9 Cancelled Sodium 142 142 (136-145) mmol/L Potassium 3.8 3.9 TNP Chloride 108 H 104 (98-107) mmol/L Carbon Dioxide 30 30 (21-32) mmol/L Anion Gap 4 8 (3-11) BUN 10 16 (6-23) mg/dl Creatinine 0.55 L 0.56 L (0.6-1.2) mg/dl Est Cr Clr Drug Dosing 131.5 Not Reportable Est GFR ( Amer) 117.3 116.6 ml/min Est GFR (Non-Af Amer) 101.2 100.6 ml/min BUN/Creatinine Ratio 18.2 28.6 H (10-20) Glucose 102 H 145 H (70-99(Fasting)) mg/dl Calcium 8.6 9.8 (8.6-10.3) mg/dl Magnesium 1.9 (1.7-2.4) mg/dl Total Bilirubin 0.7 D 1.6 H (0.2-1.0) mg/dl AST 79 H 166 H TNP ALT 130 H 67 H (7-52) U/L Alkaline Phosphatase 88 101 (34-104) U/L Troponin I High Sens 2.5 (0-14) pg/ml Total Protein 5.8 L D 7.3 (6.0-8.3) gm/dl Albumin 3.7 4.4 (3.4-5.0) gm/dl Globulin 2.1 L 2.9 (2.5-4.0) gm/dl Albumin/Globulin Ratio 1.8 1.5 (0.9-2) Lipase 52 692 H (11-82) U/L Diagnostic Findings Chest X-Ray 06/02/23 11:40 SINGLE VIEW CHEST CLINICAL HISTORY: Atypical chest pain FINDINGS: An AP, portable, upright chest radiograph is obtained. No prior studies are available for comparison at the time of dictation. The cardiomediastinal silhouette is unremarkable. There is mild elevation of the right hemidiaphragm and dependent atelectasis. The lungs and pleural spaces are otherwise clear. No pneumothorax is seen. The bony thorax is grossly intact. IMPRESSION: No active disease in the chest. ACT 112: Negative or not required by law. Electronically signed by: Jovany Melo M.D. 06/02/2023 12:53 PM KUB X-Ray 06/02/23 11:40 KUB CLINICAL HISTORY: Epigastric pain. COMPARISON STUDY: None. FINDINGS: Pelvic calcifications likely reflect phleboliths. The bowel gas pattern is normal. Amount of stool is within normal limits. Exam is mildly compromised given suboptimal penetration. No definite renal calculi. IMPRESSION: No evidence for a bowel obstruction. ACT 112: Negative or not required by law. Electronically signed by: Edison [place] M.D. 06/02/2023 1:02 PM Abdomen/Pelvis CT 06/02/23 13:[address] WITH IV CONTRAST CT DOSE: 1422.96 mGy.cm HISTORY: Acute upper abdominal pain upper abd pain TECHNIQUE: Multiaxial CT images of the abdomen and pelvis were performed fol lowing the IV administration of 90 cc of Optiray, A dose lowering technique was utilized adhering to the principles of ALARA. COMPARISON STUDY: Chest radiograph of same day FINDINGS: Trace pleural effusions. Lung bases are generally clear. No free air. Mild hepatomegaly, 14.9 cm. Unremarkable pancreas and adrenal glands. Circumferential gallbladder wall thickening with mild pericholecystic stranding. Dilation of the common bile duct measures up to 1.2 cm. No obstructing biliary stone or lesion identified. Normal caliber of the pancreatic duct. Hepatic steatosis. There are a few scattered cysts within the liver measuring up to 9 mm. Patent hepatic and portal veins. Parenchymal and renal sinus cysts of the kidneys. 3 mm nonobstructing calculus of the superior pole left kidney. No ureteral calculi or hydronephrosis. Decompressed bladder with mild wall thickening. Unremarkable uterus. Atherosclerosis of aorta. No lymphadenopathy. No bowel obstruction, ascites or mesenteric inflammation. Mild colonic diverticulosis. Normal appendix. Tiny fat filled umbilical hernia. Degenerative changes of the spine, pelvis and hips. IMPRESSION: 1. Distended gallbladder with wall thickening and pericholecystic stranding suggestive of acute cholecystitis. No gallstones are identified by CT. 2. Mild dilation of the common bile duct should be correlated with serum bilirubin to exclude an obstructive process. 3. Hepatic steatosis. 4. Splenomegaly. 5. Nonobstructing left renal calculus. 6. Additional findings as above. ACT 112: Negative or not required by law. The above report was generated using voice recognition software. It may contain grammatical, syntax or spelling errors. Electronically signed by: Tremaine Yeboah M.D. 06/02/2023 3:19 PM Cholangiopancreatography MRI 06/02/23 16:36 MRCP CLINICAL HISTORY: Acute cholecystitis. COMPARISON STUDY: Abdominal CT dated 06/02/2023. TECHNIQUE: Abdominal MRCP is performed utilizing various T2-weighted sequences in the axial and coronal planes. Diffusion weighted imaging was utilized. IV contrast was not administered for this examination. 3-D reformats are created and assessed. FINDINGS: There are gallstones in the region of the gallbladder neck. The gallbladder is distended and thick walled, with evidence of acute cholecystitis. There is trace pericholecystic fluid. There is no intrahepatic biliary duct dilatation. The common bile duct is dilated, measuring up to 10 mm. There is likely layering stones/sludge within the common bile duct, best seen on axial reformatted image #159 of 320 and sagittal reformatted image #133 of 320. The pancreatic duct is normal in caliber. A subcentimeter cyst is noted in the liver. The unenhanced liver is otherwise normal as imaged. The spleen is mildly enlarged measuring 14.3 cm in length. The pancreas is normal as imaged. There are numerous renal sinus cysts bilaterally. The kidneys are normal in size and without hydronephrosis. The abdominal aorta is normal in course and caliber. No abdominal ascites is identified. There is no pleural effusion. The bony structures appear intact. IMPRESSION: 1. Cholelithiasis with evidence of acute cholecystitis. 2. The common bile duct is dilated, and likely contains layering sludge/stones. 3. Mild splenomegaly. 4. Additional findings as above. Dictated: 06/02/2023 7:09 PM Transcribed: 06/02/2023 7:26 PM Tristen [id number] [email or web address] Electronically signed by: Jovany Melo M.D. 06/02/2023 9:05 PM
--- NOTE | 2023-06-03 13:09 | Surgery Consultation ---
Date of Consultation June 03, 2023 Assessment & Plan (1) Choledocholithiasis: I suspect this is the main issue rather than acute cholecystitis. MRCP did show just sludge and stones within the common bile duct however her LFTs are already improved. The plan is to wait till Monday to see if Dr. Florence feels she needs an ERCP. If the LFTs continue to improve I would consider doing her laparoscopic cholecystectomy tomorrow. We discussed bleeding, infection, injury to bile duct or organs, DVT, PE, MN, CVA etc. She agrees with the plan. If her LFTs bumped again tomorrow we will probably wait until next week after GI does the ERCP. (2) Symptomatic cholelithiasis: History of Present Illness Attending Physician: Claire Haynes MD History of Present Illness He is here with a 2-day history of abdominal pain. He was epigastric with some radiation initially into her chest and she is concerned about heart issues. Notes that she came to the emergency room and workup has revealed gallstones as well as likely common bile duct sludge and stones. She is currently feeling better than when she came in. Allergies Allergy/AdvReac Type Severity Reaction Status Date / Time Penicillins Allergy Intermediate Hives Verified 06/02/23 16:32 Home Medications Medication Instructions Recorded Confirmed Type albuterol sulfate 90 mcg/actuation 1 inh inhalation QID PRN sob 03/27/23 06/02/23 History aerosol inhaler lisinopril 20 2 tab PO QAM 03/27/23 06/02/23 History mg-hydrochlorothiazide 12.5 mg tablet omega-3 fatty acids 1,000 mg PO QAM 03/27/23 06/02/23 History omeprazole 20 mg tablet,delayed 20 mg PO QPM 03/27/23 06/02/23 History release Patient History Medical History Encounter for pre-operative examination Degenerative disc disease lumbar region Arthritis Stress incontinence GERD (gastroesophageal reflux disease) Prediabetes Hypertension Surgical History History of left cataract extraction Nausea and vomiting after administration of anesthetic agent History of section x 1 >incision infected and required debridement History of dilatation and curettage H/O ovarian cystectomy rt side History of esophagogastroduodenoscopy (EGD) History of tooth extraction Family History Other No family history of adverse response to anesthesia Social History Smoking Status: Never smoker Second Hand Exposure: Yes (as a child); Do You Dip or Chew Tobacco: No; Hx Alcohol Use: No Hx Substance Use: No Preferred Language: Irish Communication Ability: Effective [place] Hammerer Required: No Beliefs That Will Affect Care: None Current Living Situation: Spouse Current Living Situation Comment: and son Other Information That Helps Us Care for You: No Feels Safe at Home: Yes Safety Concerns: Feels Safe At This Time Assistive Devices: Glasses Physical Exam Constitutional: WD/WN, vitals as above no acute distress and not ill appearing Eyes: PERRL, conjunctivae normal, anicteric sclerae EOM intact bilaterally ENMT: external ear and nose normal, oropharynx normal Ears: no hearing impairment Neck: trachea midline, no thyromegaly Respiratory: normal respiratory effort; no respiratory distress and does not use accessory muscles Cardiovascular: Rate/Rhythm: regular rate and regular rhythm Gastrointestinal (Abdomen): Soft. Very mild epigastric and right upper quadrant tenderness. Skin: no rashes, warm and dry Psychiatric: Orientation: alert, oriented x 3 and cooperative Results & Data Vital Signs (Past 12 Hours) Vital Signs Temp Pulse Resp BP Pulse Ox O2 Del Method 06/03/23 07:59 36.3 C L 66 18 159/80 H 97 Room Air PG Care Time/CCT Total # of Minutes Spent Total Time Spent with Patient: Total time spent is greater than 50% in coordination of care (as documented) at patient's floor/unit and/or counseling patient: Coding Level of Care Code 75211 IN/OBS CONSULT LVL 3,45M Diagnoses Choledocholithiasis K80.50 Symptomatic cholelithiasis K80.20
[2023-06-03] MEDS: ALUMINUM/MAGNESIUM SUSP 30 ML UDC PO PRN (19:30)
[2023-06-03] MEDS: PANTOprazole 40 MG TAB PO SCH (20:03)
[2023-06-04] MEDS: LACTATED RINGER'S 1,000 ML IV SCH (00:23)
[2023-06-04 06:15] LABS: Basophils # (auto) 0.03 K/uL (0.00-0.20); Basophils % (auto) 0.6 %; Hematocrit (blood only) 38.5 % (37.0-47.0); Hemoglobin 12.7 g/dl (12.0-16.0); Immature Granulocytes # (auto) 0.02 K/uL (0.01-0.20); Immature Granulocytes % (auto) 0.4 %; Lymphocytes # (auto) 1.44 K/uL (1.20-3.40); Lymphocytes % (auto) 28.5 %; Mean Corpuscular Hemoglobin 28.7 pg (25.0-34.0); Mean Corpuscular Volume 86.9 fL (80.0-100.0); Mean Platelet Volume 10.3 fL (9.4-12.4); Monocytes # (auto) 0.32 K/uL (0.11-0.59); Monocytes % (auto) 6.3 %; Neutrophils # (auto) 3.14 K/uL (1.40-6.50); Neutrophils % (auto) 62.2 %; Platelet Count 192 K/uL (130-400); RDW Standard Deviation 40.7 fL (36.4-46.3); Red Blood Count 4.43 M/uL (4.20-5.40); White Blood Count 5.05 K/ul (4.8-10.8)
[2023-06-04 06:45] LABS: Est GFR (Non-African American) 100.1 ml/min; Potassium 3.4 mmol/L (3.5-5.1)
[2023-06-04 06:46] LABS: Albumin Globulin Ratio 1.7 (0.9-2); Albumin Level 3.9 gm/dl (3.4-5.0); Bilirubin,Total 0.8 mg/dl (0.2-1.0); Calcium 8.8 mg/dl (8.6-10.3); Creatinine Clr Calc Pharmacy 126.8 ml/min; Globulin 2.3 gm/dl (2.5-4.0); Total Protein 6.2 gm/dl (6.0-8.3)
[2023-06-04] MEDS ORDERED: ONDANSETRON INJ 2 MG/ML 2 ML VIAL ONE (07:24)
[2023-06-04] MEDS ORDERED: PROPOFOL IV EMULSION 10 MG/ML 20 ML VIAL IV ONE ×2 (07:24→08:51)
[2023-06-04] MEDS ORDERED: DEXAMETHASONE SOD INJ 4 MG/ML VIAL ONE (07:24)
[2023-06-04] MEDS ORDERED: MIDAZOLAM HCL 1 MG/ML 2ML VIAL ONE (07:24)
[2023-06-04] MEDS ORDERED: fentaNYL citrate PF 100 MCG/2 ML VIAL ONE (07:24)
[2023-06-04] MEDS ORDERED: LIDOCAINE 2% 2 ML VIAL/AMP(20MG/ML) INFIL ONE (07:24)
[2023-06-04] MEDS ORDERED: ROCURONIUM BROMIDE 10 MG/ML 5 ML VIAL IV ONE ×2 (07:24→07:38)
--- NOTE | 2023-06-04 07:36 | Anesthesiology Consultation ---
Date of Service June 04, 2023 Assessment & Plan Chart Review Chart Review: Acceptable Risk for Surgery Consults Requested none History Surgery Operation Date: 06/04/23 08:00 Proposed Procedures p Laparoscopic Cholecystectomy with intraoperative cholangiogram - Constantino Moore DO Height/Weight Height: 5 ft 7 in Weight: 101.4 kg Allergies Allergy/AdvReac Type Severity Reaction Status Date / Time Penicillins Allergy Intermediate Hives Verified 06/02/23 16:32 Medications Home Medications Medication Instructions Recorded Confirmed Last Taken albuterol sulfate 90 mcg/actuation 1 inh inhalation QID PRN sob 03/27/23 06/02/23 Unknown aerosol inhaler lisinopril 20 2 tab PO QAM 03/27/23 06/02/23 04/18/23 mg-hydrochlorothiazide 12.5 mg tablet omega-3 fatty acids 1,000 mg PO QAM 03/27/23 06/02/23 04/18/23 omeprazole 20 mg tablet,delayed 20 mg PO QPM 03/27/23 06/02/23 04/18/23 release Active Medications Generic Name Dose Route Start Last Admin Trade Name Freq PRN Reason Stop Dose Admin Al Hydrox/Mg Hydrox/Simethicone 15 ml 06/02/23 16:08 06/03/23 19:30 Aluminum/Magnesium Susp 30 Ml Udc PO 07/02/23 16:07 15 ml Q4H PRN Administration Dyspepsia Ciprofloxacin 400 mg in 200 mls @ 100 mls/hr 06/02/23 18:00 06/04/23 07:28 Cipro / D5w IV 06/12/23 17:59 Infused Q12H ROMMEL Infusion Protocol Metronidazole 500 mg in 100 mls @ 100 mls/hr 06/02/23 17:00 06/04/23 01:24 Flagyl IV 06/12/23 16:59 Infused Q8H ROMMEL Infusion Protocol Lactated Ringer's 1,000 mls @ 75 mls/hr 06/04/23 00:30 06/04/23 00:23 Lr IV 07/04/23 00:29 75 mls/hr .[id number] ROMMEL Administration Pantoprazole Sodium 40 mg 06/03/23 21:00 06/03/23 20:03 Pantoprazole 40 Mg Tab PO 07/03/23 20:59 40 mg QPM ROMMEL Administration Past Medical History Medical History Encounter for pre-operative examination Degenerative disc disease lumbar region Arthritis Stress incontinence GERD (gastroesophageal reflux disease) Prediabetes Hypertension Past Family History Family History Other No family history of adverse response to anesthesia Past Surgical History Surgical History History of left cataract extraction Nausea and vomiting after administration of anesthetic agent History of section x 1 >incision infected and required debridement History of dilatation and curettage H/O ovarian cystectomy rt side History of esophagogastroduodenoscopy (EGD) History of tooth extraction Social History Smoking Status: Never smoker Do You Dip or Chew Tobacco: No Hx Alcohol Use: No alcohol intake frequency: holidays/special occasions only Hx Substance Use: No substance use type: does not use Physical Exam Vital Signs Last Vital Signs Temp 36.7 C 06/03/23 19:00 Pulse 69 06/03/23 19:00 Resp 16 06/03/23 19:00 BP 158/90 H 06/03/23 19:00 Pulse Ox 96 06/03/23 19:00 O2 Del Method Room Air 06/03/23 20:00 Constitutional WD/WN, vitals as above no acute distress and not ill appearing Eyes PERRL, conjunctivae normal, anicteric sclerae EOM intact bilaterally ENMT external ear and nose normal, oropharynx normal Ears: no hearing impairment Neck trachea midline, no thyromegaly Respiratory normal respiratory effort, lungs clear to auscultation normal respiratory effort; no respiratory distress and does not use accessory muscles Cardiovascular RRR, no murmur, no edema Rate/Rhythm: regular rate and regular rhythm Gastrointestinal (Abdomen) normal bowel sounds, soft, nontender, no hepatosplenomegaly Musculoskeletal Extremities: no cyanosis and no clubbing Skin no rashes, warm and dry Neurologic PERRL, EOMI, accommodation nl, no face palsy, no dysarthria Psychiatric Orientation: alert, oriented x 3 and cooperative Testing Laboratory Results 06/04/23 05:25 06/04/23 05:25 PT 10.9 Seconds (9.0-12.0) 06/02/23 14:44 INR 1.0 (0.9-1.1) 06/02/23 14:44 APTT 26 Seconds (21-31) 06/02/23 14:44
[2023-06-04] MEDS ORDERED: SUGAMMADEX SODIUM 200 MG/2 ML VIAL IV ONE (07:38)
[2023-06-04] MEDS ORDERED: ONDANSETRON INJ 2 MG/ML 2 ML VIAL IV PRN (07:49)
[2023-06-04] MEDS ORDERED: ePHEDrine sulfate 50 MG/ML AMP IV PRN (07:49)
[2023-06-04] MEDS ORDERED: ATROPINE SULFATE 0.1 MG/ML 10ML SYR IV PRN (07:49)
[2023-06-04] MEDS ORDERED: fentaNYL citrate PF 100 MCG/2 ML VIAL IV PRN (07:49)
[2023-06-04] MEDS ORDERED: diphenhydrAMINE 50 MG/ML VIAL ONE (08:19)
[2023-06-04] MEDS ORDERED: KETOROLAC 30 MG/ML VIAL ONE (08:52)
[2023-06-04] MEDS: IOVERSOL 50ml IV ONE (08:56)
[2023-06-04] MEDS: FLOSEAL HEMOSTATIC MATRIX 5ML TOP ONE (09:14)
[2023-06-04] MEDS: BUPIVACAINE/EPINEPHRINE 0.5% MPF 1:200,000 30 ML VIAL ONE (09:24)
--- NOTE | 2023-06-04 09:34 | Operative Report ---
PG Post Operative Report Pre & Post Diagnosis Operation Date: 06/04/23 08:00 Pre-Op Diagnosis: Choledocholithiasis;cholelithiasis Post-Op Diagnosis: Choledocholithiasis;cholelithiasis; mild cholecystitis I identified the patient and participated in the time-out.: Yes Procedure Operation Date: 06/04/23 08:00 Actual Procedures p Laparoscopic Cholecystectomy with intraoperative cholangiogram(Not Applicable) - Constantino Moore DO Surgeon Constantino Moore DO Lead Web Application Developer [email or web address] [email or web address] Estimated Blood Loss 20 Findings Consistent with Post-Op Diagnosis Specimens gallbladder Description of Procedure After informed consent was obtained the patient was taken to the operating room and placed in the supine position. After successful intubation the abdomen was sterilely prepped and draped in usual fashion. A periumbilical incision was made with an 11 blade scalpel and carried down through the soft tissue using electrocautery. The anterior rectus fascia was opened using electrocautery and 2 #0 Vicryl stay sutures were placed. The peritoneum was elevated with hemostats and incised under direct vision using Metzenbaum scissors. A finger sweep was performed and a 12 mm [place] trocar was placed. The abdomen was insufflated to 18 mmHg. The laparoscope was inserted and the abdomen was examined in 360. No gross abnormalities were identified. A subxiphoid 5 mm port and 2 right upper quadrant 5 mm ports were placed under direct vision. The patient was placed in a reverse Trendelenburg position and slightly airplaned to the left. The gallbladder was grasped and elevated superiorly and laterally. A [place] dissector was used to take down adhesions around the neck of the gallbladder. The cystic duct was identified and skeletonized. Placed a clip on the gallbladder side of the cystic duct and divided the cystic duct proximally 60% across. A fourth right upper quadrant 5 mm trocar was placed and the chol angiocatheter was advanced. The catheter was advanced into the lumen of the cystic duct and the balloon deployed. I flushed with saline there was no evidence of extravasation. Next we performed a cholangiogram with a 50-50 Optiray. The common bile duct and duodenum readily lit up. There was a questionable lucency in the midportion of the common bile duct but it is quite small relative to the common bile duct. No other gross abnormalities were identified. The catheter was subsequently removed. I then placed 2 clips on the proximal portion of the cystic duct. in similar fashion the cystic artery was identified and skeletonized clipped and divided. The gallbladder was removed from the gallbladder fossa with electrocautery. It was placed into an Endo Catch bag. Thorough irrigation was performed. There was a small amount of oozing in the liver bed but it was quite proximal to the right hepatic artery. Therefore I placed 5 cc of Floseal. Held pressure for several minutes. This controlled the oozing. At the end of the procedure there was adequate hemostasis and no evidence of any bile leaks. A final look around the abdomen showed no other abnormalities. The gallbladder and trochars were all removed and the abdomen was desufflated. The fascia of the camera port was closed using 0 Vicryl in a [id number] fashion. All the wounds were irrigated and closed using 4-0 Monocryl. Marcaine was injected around them for postoperative analgesia and skin glue used as a dressing. The patient was awaken extubated and transferred to recovery in stable condition. My TECHNICAL SOLUTIONS ENGINEER was present throughout the entire case... helped with prepping the patient. With exposure for trocar placement, as well as retracted the gallbladder throughout the case and also assisted with wound closure and dressing placement. I attest to the content of the Intraoperative Record and any orders documented therein. Any exceptions are noted below.
--- NOTE | 2023-06-04 09:34 | Fluoroscopy Report ---
[place] cholangiogram OR CLINICAL HISTORY: CHOLANGIOGRAM COMPARISON STUDY: CT of the abdomen and pelvis and MRCP June 02, 2023. FLUOROSCOPY TIME: 17 seconds. Ka, r: 5.25 mGy FLUOROSCOPIC IMAGES: 1 FINDINGS: Fluoroscopy was provided during intraoperative cholangiogram. No filling defects are identi fied within the common bile duct. There is contrast within the duodenum. Extraluminal contrast is not ed within the operative bed. IMPRESSION: Fluoroscopy provided during intraoperative cholangiogram. No filling defects to suggest choledocholithiasis. ACT 112: Negative or not required by law. Electronically signed by: Edison [place] M.D. 06/04/2023 9:33 AM
--- NOTE | 2023-06-04 10:01 | Anesthesiology Progress Note ---
Date of Service June 04, 2023 Anesthesia Post Procedure Vital Signs Vital Signs: Temp Pulse Pulse Resp BP BP Pulse Ox 06/04/23 09:50 83 20 146/77 H 97 06/04/23 09:40 36.4 C L 86 12 150/84 H 98 06/03/23 20:00 06/03/23 19:00 36.7 C 69 16 158/90 H 96 06/03/23 16:20 36.6 C 69 18 154/84 H 100 O2 Del Method O2 Flow Rate 06/04/23 09:50 Oxymask 6 06/04/23 09:40 Oxymask 8 06/03/23 20:00 Room Air 06/03/23 19:00 Room Air 06/03/23 16:20 Room Air Transfer of Care Handoff Completed per policy Notes Mental Status: alert / awake / arousable Patient Amnestic to Procedure: Yes Nausea / Vomiting: adequately controlled Pain: adequately controlled Airway Patency, RR, SpO2: stable & adequate BP & HR: stable & adequate Hydration State: stable & adequate Anesthetic Complications: no major complications apparent and Pt Satisfied with anesthetic care
[2023-06-04] MEDS ORDERED: MoRPHine SULFATE 4 MG/ML 1 ML CARP\\VIAL IV PRN (10:27)
[2023-06-04] MEDS: DROPERIDOL 5 MG/2 ML VIAL ONE (10:37)
[2023-06-04] MEDS: MoRPHine SULFATE 2 MG/ML CARP IV PRN (11:07)
[2023-06-04] MEDS: lisinopril 40 MG TAB PO SCH (11:28)
--- NOTE | 2023-06-04 15:49 | Hospitalist Progress Note ---
Date of Service June 04, 2023 Assessment & Plan (1) Acute cholecystitis: (2) Acute pancreatitis: (3) Hypertension: (4) Prediabetes: (5) GERD (gastroesophageal reflux disease): (6) Choledocholithiasis: (7) Chest pain: Plan Ms. Burdick is a 63-year-old female with PMHx significant for HTN, prediabetes and GERD presenting with chest pain. Work-up was concerning for acute cholecystitis and choledocholithiasis, ACS ruled out. Acute cholecystitis: Acute choledocholithiasis: Acute pancreatitis: Atypical Chest Pain WBC not elevated on admission, afebrile, vitals otherwise stable LFTs elevated: AST 166, ALT 67; total bili 1.6 Lipase 692 Troponin x1 negative, EKG NSR Chest x-ray negative, KUB negative Abdomen/pelvis CT: Distended gallbladder with wall thickening and pericholecystic stranding suggestive of acute cholecystitis. No gallstones are identified by CT. Mild dilation of the common bile duct should be correlated with serum bilirubin to exclude an obstructive process. Splenomegaly. Nonobstructing left renal calculus. MRCP noting: . Cholelithiasis with evidence of acute cholecystitis Dilated common bile duct that "likely contains layering sludge/stones." Mild splenomegaly. Cefoxitin given in ED; continue with Cipro and Flagyl Continue NSS @ 125ml/hour GI consult placed, appreciate recs -ERCP and cholecystectomy needed -ERCP can be done on Monday 06/05 -transfer if pt develops signs of cholangitis before ERCP can be done General surgery consult placed, appreciate recs -Notes liver enzymes generally downtrending on 06/03 -Advised that if downtrend continues in the AM of 06/04, will consider cholecystectomy 06/04. Otherwise cholecystectomy will be done after ERCP -Pt is s/p cholecystectomy on 06/04 after continued downtrend of enzymes. Intraop Cholangiogram not suggestive of choledocholithiasis. Will continue abx at this time given pt's presentation and concern for choledocholithiasis. Lipase downtrended and wnl after fluids, likely was elevated in setting of choledocholithiasis ACS ruled out, chest pain likely in setting of diagnoses above Trend WBC and liver enzymes with AM labs Pain Control HTN: Chronic Takes lisinopril-hydrochlorothiazide; continue GERD: Chronic Takes omeprazole; continue Prediabetes: Chronic Diet modifications and weight loss current plan Most recent A1c 04/13/23: 6.0 Diet: Clears, NPO after midnight CODE STATUS: Full code VTE prophylaxis: Teds and SCDs perioperative/procedure DISPO: Home postop, consider PT/OT eval Admission and Anticipated Discharge Date Admission Date: June 02, 2023 Subjective Pt was seen in the AM, postop. Noted that she felt like she needed some pain medications. Pain mostly in lower abdomen. Also needed to use the bathroom. Review of Systems Review of Systems: All systems reviewed & are unremarkable except as noted in Subjective Physical Exam Physical Exam: General: Alert, oriented. Skin: No noted rashes or bruises Psych: Appropriate mood and affect Neuro: No gross deficits HEENT: NC/AT Chest: Nontender to palpation. CV: RRR Resp: Breath sounds clear bilaterally, no increased effort of breathing. Abdomen: Soft, nontender, nondistended. No guarding. Results & Data Results & Data Vital Signs (Past 12 Hours) Vital Signs Temp Pulse Pulse Resp BP Pulse Ox O2 Del Method 06/04/23 11:29 36.9 C 94 H 14 115/78 93 Room Air 06/04/23 10:55 36.4 C L 88 16 131/79 93 Room Air 06/04/23 10:25 36.5 C 99 H 14 153/82 H 93 Room Air 06/04/23 10:10 36.4 C L 91 H 22 134/78 94 Room Air 06/04/23 10:00 89 16 146/79 H 96 Oxymask 06/04/23 09:50 83 20 146/77 H 97 Oxymask 06/04/23 09:40 36.4 C L 86 12 150/84 H 98 Oxymask O2 Flow Rate 06/04/23 11:29 06/04/23 10:55 06/04/23 10:25 06/04/23 10:10 06/04/23 10:00 4 06/04/23 09:50 6 06/04/23 09:40 8 (2) Acute pancreatitis Acute pancreatitis complication: unspecified Pancreatitis type: biliary Qualified Code(s): K85.10 - Biliary acute pancreatitis without necrosis or infection (7) Chest pain Chest pain type: unspecified Qualified Code(s): R07.9 - Chest pain, unspecified
[2023-06-04] MEDS: POTASSIUM CHLORIDE CRTAB 20 MEQ TABCR PO STA (16:01)
[2023-06-04] MEDS: COUGH DROP (SUGAR FREE) LOZ 24 LOZ/1 BOX BUCCAL ONE (17:24)
[2023-06-05 07:11] LABS: Basophils # (auto) 0.02 K/uL (0.00-0.20); Basophils % (auto) 0.2 %; Eosinophils # (auto) 0.01 K/uL (0.00-0.50); Eosinophils % (auto) 0.1 %; Hematocrit (blood only) 38.7 % (37.0-47.0); Hemoglobin 12.7 g/dl (12.0-16.0); Immature Granulocytes # (auto) 0.02 K/uL (0.01-0.20); Immature Granulocytes % (auto) 0.2 %; Lymphocytes # (auto) 1.27 K/uL (1.20-3.40); Lymphocytes % (auto) 14.6 %; Mean Corpuscular Hemoglobin 28.5 pg (25.0-34.0); Mean Corpuscular Hgb Conc 32.8 g/dL (32.0-36.0); Mean Platelet Volume 10.3 fL (9.4-12.4); Monocytes # (auto) 0.56 K/uL (0.11-0.59); Monocytes % (auto) 6.4 %; Neutrophils # (auto) 6.84 K/uL (1.40-6.50); Neutrophils % (auto) 78.5 %; Platelet Count 207 K/uL (130-400); RDW Coefficient of Variation 13.2 % (11.5-14.5); RDW Standard Deviation 41.5 fL (36.4-46.3); Red Blood Count 4.45 M/uL (4.20-5.40); White Blood Count 8.72 K/ul (4.8-10.8)
[2023-06-05 07:34] LABS: Albumin Globulin Ratio 1.7 (0.9-2); Albumin Level 4.1 gm/dl (3.4-5.0); BUN Creatinine Ratio 18.6 (10-20); Bilirubin,Total 0.8 mg/dl (0.2-1.0); Calcium 9.1 mg/dl (8.6-10.3); Est GFR (African American) 114.7 ml/min; Est GFR (Non-African American) 98.9 ml/min; Globulin 2.4 gm/dl (2.5-4.0); Magnesium 1.9 mg/dl (1.7-2.4); Phosphorus 3.5 mg/dl (2.5-4.9); Potassium 3.3 mmol/L (3.5-5.1); Total Protein 6.5 gm/dl (6.0-8.3)
[2023-06-05] MEDS ORDERED: POTASSIUM CHLORIDE CRTAB 20 MEQ TABCR PO STA (09:41)
--- NOTE | 2023-06-05 11:38 | Discharge Summary ---
Discharge Summary Date of Service June 05, 2023 Notes For Next Care Provider Per GI, needs outpt EUS. Please ensure followup Per GI and General Surgery no further antibiotic coverage after discharge. Medication Changes From Visit None Admission HPI Per Admitting Provider Ms. Burdick is a 63-year-old that presented to the ED today with complaints of mi dsternal chest pain without radiation started this morning between 9 and 9:30 with tingling in both of her hands with diaphoresis. She states she was feeling nauseous but did not vomit. She has described her pain as more epigastric with radiation into her upper chest. Reports that a similar episode occurred a few days ago resolving spontaneously. Other past medical history includes HTN, prediabetes and GERD. No leukocytosis, AST 166, ALT 67, lipase 692, total bili 1.6. Otherwise electrolytes unremarkable. Patient has not eaten today. Chest x-ray negative for acute cardiopulmonary process, KUB negative and did not indicate any kidney stones. Abdomen pelvis CT: Distended gallbladder with wall thickening and pericholecystic stranding suggestive of acute cholecystitis. No gallstones are identified by CT. 2. Mild dilation of the common bile duct should be correlated with serum bilirubin to exclude an obstructive process. 4. Splenomegaly. 5. Nonobstructing left renal calculus. Denies tobacco, alcohol or recreational drug use reported. Her son has autism and requires caregiver support. Patient denies history of AMI or stroke. Patient denies headache, dizziness, shortness of breath, chest pain, palpitations, dysuria, bowel changes, recent falls or trauma. Patient with acute cholecystitis and possible pancreatitis with mild dilation of the CBD with elevated total bilirubin. Will keep NPO and order MCRP and will start Cipro + Flagyl. Will reach out to gastroenterology and consult general surgery as well. Received 500 cc NSB in ED, will continue NSS @ 125ml/hour. Based on MRCP results will need to discuss whether or not transfer to another facility is warranted for warranted for further care and intervention. Patient will be admitted for further evaluation and management. Please see A/P for further details. Admission Exam Per Admitting Provider Neuro: AAOx4, PERRLA, no aphagia, memory changes, CNII-XII grossly intact HEENT: head normocephalic, moist mucus membranes CV: S1/S2, (-) M/G/R, (-) edema, cap refill < 3 seconds Resp: Lungs CTA in all sutton. On RA GI: Abdomen distended and firm epigastric region, generalized tenderness, hypoactive bowel sounds,(-) CVA tenderness Musculoskeletal: 5/5 B/L UE strength, 5/5 B/L LE strength. No gait disturbance Skin: (-) rashes , (-) erythema. Psych: euthymic mood Principal Dx & Hospital Course #1 = Principal Diagnosis (1) Acute cholecystitis: (2) Acute pancreatitis: (3) Hypertension: (4) Prediabetes: (5) GERD (gastroesophageal reflux disease): (6) Choledocholithiasis: (7) Chest pain: Plan Ms. Burdick is a 63-year-old female with PMHx significant for HTN, prediabetes and GERD presenting with chest pain. Work-up was concerning for acute cholecystitis and choledocholithiasis, ACS ruled out. Acute cholecystitis: Acute choledocholithiasis: Acute pancreatitis: Atypical Chest Pain WBC not elevated on admission, afebrile, vitals otherwise stable LFTs elevated: AST 166, ALT 67; total bili 1.6 Lipase 692 Troponin x1 negative, EKG NSR Chest x-ray negative, KUB negative Abdomen/pelvis CT: Distended gallbladder with wall thickening and pericholecystic stranding suggestive of acute cholecystitis. No gallstones are identified by CT. Mild dilation of the common bile duct should be correlated with serum bilirubin to exclude an obstructive process. Splenomegaly. Nonobstructing left renal calculus. MRCP noting: . Cholelithiasis with evidence of acute cholecystitis Dilated common bile duct that "likely contains layering sludge/stones." Mild splenomegaly. Cefoxitin given in ED; continue with Cipro and Flagyl Continue NSS @ 125ml/hour GI consult placed, appreciate recs -ERCP and cholecystectomy needed -ERCP can be done on Monday 06/05 -transfer if pt develops signs of cholangitis before ERCP can be done -Pt is s/p cholecystectomy on 06/04 after continued downtrend of enzymes. Intraop Cholangiogram not suggestive of choledocholithiasis. -Per Gastroenterology discussion on 06/05- pt stable for discharge, no antibiotics needed after discharge. Outpt EUS needed. General surgery consult placed, appreciate recs -Notes liver enzymes generally downtrending on 06/03 -Advised that if downtrend continues in the AM of 06/04, will consider cholecystectomy 06/04. Otherwise cholecystectomy will be done after ERCP -Pt is s/p cholecystectomy on 06/04 after continued downtrend of enzymes. Intraop Cholangiogram not suggestive of choledocholithiasis. -Per General Surgery discussion on 06/05- pt stable for discharge, no antibiotics needed after discharge. Lipase downtrended and wnl after fluids, likely was elevated in setting of choledocholithiasis ACS ruled out, chest pain likely in setting of diagnoses above Trend WBC and liver enzymes with AM labs Pain Control HTN: Chronic Takes lisinopril-hydrochlorothiazide; continue GERD: Chronic Takes omeprazole; continue Prediabetes: Chronic Diet modifications and weight loss current plan Most recent A1c 04/13/23: 6.0 Diet: Clears, NPO after midnight CODE STATUS: Full code VTE prophylaxis: Teds and SCDs perioperative/procedure DISPO: Home postop, consider PT/OT eval Discharge Exam General: Alert, oriented. Skin: No noted rashes or bruises Psych: Appropriate mood and affect Neuro: No gross deficits HEENT: NC/AT Chest: Nontender to palpation. CV: RRR Resp: Breath sounds clear bilaterally, no increased effort of breathing. Abdomen: Soft, nontender, nondistended. No guarding. Updated Medication List Medication Instructions Recorded Confirmed Type albuterol sulfate 90 mcg/actuation 1 inh inhalation QID PRN sob 03/27/23 06/02/23 History aerosol inhaler lisinopril 20 2 tab PO QAM 03/27/23 06/02/23 History mg-hydrochlorothiazide 12.5 mg tablet omega-3 fatty acids 1,000 mg PO QAM 03/27/23 06/02/23 History omeprazole 20 mg tablet,delayed 20 mg PO QPM 03/27/23 06/02/23 History release Hospital Stay Data Consultations 06/02/23 15:43 ED Decision to Admit Stat 06/02/23 16:08 Consult Gastroenterology Routine 06/02/23 16:46 Consult General Surgery Routine Procedures Performed Operation Date: 06/04/23 08:00 Actual Procedures p Laparoscopic Cholecystectomy with intraoperative cholangiogram(Not Applicable) - Constantino Moore, DO Diagnostic Imagining Performed 06/02/23 13:36 CT abd pelvis IV con only Stat 06/02/23 16:36 MRI MRCP [MR MRCP] Routine 06/04/23 [place] cholangiogram OR Routine Pending Results Patient Have Any Pending Studies at Discharge: Yes Discharge Instructions Given to Patient (Per Discharging Provider) Hannah, You were admitted with an infection of your gallbladder and had surgery to remove it. You are being discharged home today. Your worm raiser and General Surgeon both agree that you do not need antibiotics on discharge. The following is further advice from your General Surgeon: You have surgical glue called dermabond on your surgical site incisions. You may shower with this on. This will tend to come off within a couple of weeks. Do not pick at it.
--- NOTE | 2023-06-05 11:38 | Gastroenterology Progress Note ---
Date of Service June 05, 2023 I agree with pe and plan as documented Slightly sore post surgery Admitted with concerns for acute cholecystitis, ? concer for cbd dilation on imaging prior to surgery, negative ioc, bilir now normal. Agree with outpt eus. Assessment & Plan (1) Dilated bile duct: Plan Likely passed microlithiasis, however, bile duct abnormalities and pancreas abnormalities should be ruled out w OP EUS. Explained to the pt who is agreeable to this plan. Diet per surgery. No GI indication for continued antibiotics, would defer to surgery. Our office will contact her to arrange OP EUS in the next 1-2 months. GI will sign off. Admission and Anticipated Discharge Date Admission Date: June 02, 2023 Subjective 63 yr old female admitted on 06/02 for biliary colic type abd pain. CT and MRCP prior to lap choley yesterday w dilated bile duct but no obvious stones or strictures. Pt feels well this morning and tolerated a clear liquid tray last night. LFTs are improving. Today Bili is normal (max was 1.6 on 06/02), Alk phos has remained normal. Transaminases are trending down: AST 166->48, ALT 130-> 95. Lipase normal. Review of Systems Review of Systems: ROS: Gen: Denies weakness, fevers, weight loss Eyes: No eye redness, or pain, no recent vision changes Resp: No SOB, no cough Cardio: No palpitations/irregular beats, no chest pain GI: Appropriate post surgical "soreness," no other symptoms : Denies pain on urination Skin: No jaundice, itching or new rashes Physical Exam Constitutional: WD/WN, vitals as above Eyes: PERRL, conjunctivae normal, anicteric sclerae ENMT: external ear and nose normal, oropharynx normal Neck: trachea midline, no thyromegaly Respiratory: normal respiratory effort, lungs clear to auscultation Cardiovascular: RRR, no murmur, no edema Gastrointestinal (Abdomen): Active BS, Soft, mild distention, surgical incisions are healing well, no discharge/bleeding Musculoskeletal: no cyanosis or clubbing, extremities motor strength 5/5 Skin: no rashes, warm and dry Neurologic: PERRL, EOMI, accommodation nl, no face palsy, no dysarthria Psychiatric: A+Ox3, euthymic affect Lymphatic: no cervical or axillary lymphadenopathy Results & Data Vital Signs (Past 12 Hours) Vital Signs Temp Pulse Resp BP Pulse Ox O2 Del Method 06/05/23 08:12 36.5 C 59 L 16 146/79 H 98 Room Air 06/05/23 05:36 Room Air Laboratory Results WBC 8, Hb 12, Hct 38, Plts 207, PT 10, INR `, Na 142, K 3.3, Cl 107, CO2 22, BUN 11, Cr 0.5, glucose 119. See HPI for LFTs Diagnostic Findings CTAP w IV 06/02/23: 1. Distended gallbladder with wall thickening and pericholecystic stranding suggestive of acute cholecystitis. No gallstones are identified by CT. 2. Mild dilation of the common bile duct should be correlated with serum bilirubin to exclude an obstructive process. 3. Hepatic steatosis. 4. Splenomegaly. 5. Nonobstructing left renal calculus. 6. Additional findings as above. MRI 06/02/23: 1. Cholelithiasis with evidence of acute cholecystitis. 2. The common bile duct is dilated, and likely contains layering sludge/stones. 3. Mild splenomegaly. 4. Additional findings as above. [place] cholangiogram 06/05/23: Negative or not required by law.
--- NOTE | 2023-06-05 11:40 | Surgery Progress Note ---
Date of Service June 05, 2023 Assessment & Plan (1) Symptomatic cholelithiasis: Plan: pod 1 doing well ok for d/c from my standpoint. gi not planning ercp. LFT's ok. cholangiogram looked ok. instructions given. f/u with me in 1-2 weeks. Admission and Anticipated Discharge Date Admission Date: June 02, 2023 Subjective pt seen. feeling well. ashley diet Physical Exam Physical Exam: alert. nad abd: soft. incisions look good. Results & Data Vital Signs (Past 12 Hours) Vital Signs Temp Pulse Resp BP Pulse Ox O2 Del Method 06/05/23 08:12 36.5 C 59 L 16 146/79 H 98 Room Air 06/05/23 05:36 Room Air PG Care Time/CCT Total # of Minutes Spent Total Time Spent with Patient: Total time spent is greater than 50% in coordination of care (as documented) at patient's floor/unit and/or counseling patient: Coding Level of Care Code 66843 Post Operative Follow-Up Diagnoses Symptomatic cholelithiasis K80.20
== END 2023-06-05 14:32 | disposition home or self-care (01) | DRG 417 ==
LOC: ED 11:25 → EDINP 16:08 → SUATTDRO 16:08 → 3W 18:37